=== PATIENT | female | born 1970 | race Caucasian/White ===

== ENCOUNTER 2023-01-15 19:24 | Inpatient (IN) | payer MEDICARE, MEDICAID ==
[2023-01-15] VITALS (8 sets, daily range): BP systolic 91–146; BP diastolic 50–98; PULSE 119–140; RESP 16–32; TEMP 95.5–97.5; O2SAT 94–98
[~2023-01-15] VITALS: Ht 162.6 cm; Wt 70.0 kg
[2023-01-15] MEDS ORDERED: NALOXONE HCL 1MG/ML 2ML SYRINGE ONE (19:27)
[2023-01-15] MEDS ORDERED: ROCURONIUM 10MG/ML 10ML VIAL IV ONE ×2 (19:39→20:45)
[2023-01-15] MEDS ORDERED: ETOMIDATE (2MG/ML) 20ML VIAL IV ONE ×2 (19:39→20:45)
[2023-01-15] MEDS ORDERED: PROPOFOL 100 ML IV ONE (19:39)
[2023-01-15] MEDS ORDERED: NALOXONE HCL 1MG/ML 2ML SYRINGE IV ONE ×2 (19:45)
[2023-01-15] MEDS ORDERED: MIDAZOLAM DRIP 50 mg/50mL 50 ML IV ONE (20:03)
[2023-01-15 20:05] LABS: Basophils # (auto) 0 10 ^3/uL (0-0.2); Basophils % (auto) 0.1 % (0.0-2.0); Eosinophils # (auto) 0 10 ^3/uL (0-0.8); Eosinophils % (auto) 0.1 % (0.0-7.0); Hematocrit 25.4 % (36.0-46.0); Hemoglobin 7.6 g/dL (12.2-16.2); Lymphocytes # (auto) 1.6 10 ^3/uL (0.4-5.4); Lymphocytes % (auto) 6.1 % (10.0-50.0); Mean Corpuscular Hemoglobin 28.8 pg (28.0-32.0); Mean Corpuscular Volume 96.1 fL (80.0-100.0); Monocytes # (auto) 1.6 10 ^3/uL (0-1.3); Neutrophils # (auto) 23.1 10 ^3/uL (1.6-8.6); Neutrophils % (auto) 87.7 % (37.0-80.0); Nucleated Red Blood Cells % 0.2 %; Red Blood Cells 2.64 10^6/uL (4.0-5.20); Red Cell Distribution Width 15.1 % (11.8-14.3); White Blood Cell 26.3 10^3/uL (4.4-10.8)
[2023-01-15] MEDS ORDERED: NOREPINEPHRINE 8 MG/250ML KIT 250 ML IV ONE (20:10)
[2023-01-15 20:27] LABS: INR 1.28 (0.9-1.15); Partial Thromboplastin Time 20.5 SEC (24.5-34.5); Prothrombin Time 13.2 sec (9.3-11.8)
[2023-01-15] MEDS: MIDAZOLAM DRIP 50 mg/50mL 50 ML IV SCH (20:30)
[2023-01-15] MEDS: NOREPINEPHRINE 8 MG/250ML KIT 250 ML IV SCH (20:30)
[2023-01-15 20:37] LABS: Acetaminophen < 2.0 UG/ML (10.0-20.0); Alanine Aminotransferase 72 U/L (7-40); Albumin 3.5 g/dL (3.2-4.8); Alkaline Phosphatase 116 U/L (46-116); Anion Gap 25 (5-15); Aspartate Aminotransferase 99 U/L (13-40); BUN/Creatinine Ratio 41.5 (10.0-20.0); Bilirubin, Total 0.3 mg/dL (0.2-1.0); Blood Urea Nitrogen 56 mg/dL (9-23); Carbon Dioxide 14 mmol/L (20-30); Chloride 101 mmol/L (98-107); Glucose 171 mg/dL (74-106); Potassium 3.7 mmol/L (3.5-5.1); Sodium 140 mmol/L (136-145); Total Protein 5.6 g/dL (5.7-8.2)
[2023-01-15] MEDS ORDERED: OCTREOTIDE ACETATE 100 MCG/ML VL ONE (20:45)
[2023-01-15] MEDS: OCTREOTIDE ACETATE 500 MCG in SODIUM CHL 0.9% 99 ML IV SCH (20:45)
[2023-01-15] MEDS ORDERED: OCTREOTIDE ACETATE 500 MCG/ML VL ONE (20:45)
[2023-01-15] MEDS ORDERED: OCTREOTIDE ACETATE 100 MCG in SODIUM CHL 0.9% 50 ML IV ONE (20:45)
[2023-01-15] MEDS ORDERED: PANTOPRAZOLE 40 MG/10 ML VIAL INJ IV ONE (20:45)
[2023-01-15 20:54] LABS: Amphetamine Screen, Urine Neg (NEGATIVE); Barbiturate Scree,Urine Neg (NEGATIVE); Benzodiazephine Screen, Urine Pos (NEGATIVE); Cannabinoid Screen, Urine Pos (NEGATIVE); Cocaine Screen, Urine Neg (NEGATIVE); Opiate Scree,Urine Pos (NEGATIVE); Phencyclidine Screen, Urine Neg (NEGATIVE)
[2023-01-15 20:55] LABS: Salicylate < 3.0 mg/dL (2.8-20.0)
[2023-01-15 21:01] LABS: Urine Bacteria NONE SEEN /hpf (None Seen); Urine Blood Negative /uL (Negative); Urine Clarity Clear (Clear); Urine Color Yellow (Yellow); Urine Protein, UAD Negative (Negative); Urine Specific Gravity 1.026 (1.001-1.035); Urine Urobilinogen Normal (Negative); Urine WBC 1 /hpf (0 - 5); Urine pH 5.5 (5.0-8.0)
[2023-01-15] MEDS ORDERED: PIPERACILLIN-TAZO 4.5GM 100 ML IV ONE (21:15)
[2023-01-15] MEDS ORDERED: VANCOMYCIN 1GM/250ML 250 ML IV ONE (21:15)
[2023-01-15 21:45] LABS: Base Excess -11.6 mmol/L (-2.0-2.0)
[2023-01-15] MEDS ORDERED: VANCOMYCIN PER PHARMACY 0 MG IV SCH (21:45)
[2023-01-15] MEDS ORDERED: MORPHINE SULFATE INJ 2 MG/ml SYRG IV PRN (21:45)
[2023-01-15] MEDS ORDERED: IBUPROFEN 100MG/5ML ORAL SUSP 100 MG/5 ML UD GT PRN (21:45)
[2023-01-15] MEDS ORDERED: NITROGLYCERIN 0.4 MG SL TAB SL PRN (21:45)
[2023-01-15] MEDS ORDERED: ONDANSETRON HCL 4 MG/2 ML VIAL IV PRN (21:45)
[2023-01-15] MEDS ORDERED: DEXTROSE (50%) 50ML SYRG IV PRN (21:45)
[2023-01-15] MEDS ORDERED: SODIUM BICARBONATE 8.4% INJ 50ML SYRINGE ONE (21:57)
[2023-01-15] MEDS ORDERED: HEPARIN SODIUM (PORCINE) 5000 UNITS/ML 1ML VIAL SC SCH (22:00)
[2023-01-15] MEDS: SODIUM CHLOR 0.9% PF (SALINE LOCK) 10ML VIAL/SYR IV SCH (22:00)
[2023-01-15] MEDS ORDERED: SODIUM BICARBONATE 8.4 % INJ 50ML VIAL IV ONE (22:00)
[2023-01-15 22:01] LABS: Blood Alcohol < 3.0 mg/dL (<10)
[2023-01-15 22:02] LABS: Magnesium 2.1 mg/dL (1.6-2.6)
[2023-01-15 22:03] LABS: Lactic Acid w/Reflex 12.7 mmol/L (0.4-2.0)
[2023-01-15] MEDS ORDERED: cefTRIAXone 1GM/50ML D5W 50 ML IV SCH (23:00)
[2023-01-15] MEDS ORDERED: fentaNYL Drip 2500mCg/250mlNS 250 ML IV ONE (23:43)
[2023-01-15] MEDS: fentaNYL Drip 2500mCg/250mlNS 250 ML IV SCH (23:45)
[2023-01-16] VITALS (106 sets, daily range): BP systolic 77–140; BP diastolic 26–75; PULSE 109–142; RESP 15–24; TEMP 98.4–101.7; O2SAT 93–100
[2023-01-16] MEDS ORDERED: AZITHROMYCIN 500MG/ 250ML 250 ML IV ONE
[2023-01-16] MEDS ORDERED: PROPOFOL 100 ML IV ONE (00:01)
[2023-01-16] MEDS: FAMOTIDINE (10MG/ML) 2ML VL IV SCH ×3 (01:37→21:48)
[2023-01-16] MEDS: ACCU-CHEK COMFORT CURVE STRIP VI SCH ×2 (01:38→05:56)
[2023-01-16] MEDS: MIDAZOLAM DRIP 50 mg/50mL 50 ML IV SCH ×2 (03:18→08:03)
[2023-01-16 04:12] LABS: Basophils # (auto) 0 10 ^3/uL (0-0.2); Basophils % (auto) 0.1 % (0.0-2.0); Eosinophils # (auto) 0 10 ^3/uL (0-0.8); Hematocrit 28.5 % (36.0-46.0); Hemoglobin 9.2 g/dL (12.2-16.2); Lymphocytes % (auto) 7.6 % (10.0-50.0); Mean Corpuscular Hemoglobin 28.9 pg (28.0-32.0); Mean Corpuscular Hgb Conc. 32.5 g/dL (32.0-36.0); Mean Corpuscular Volume 89.1 fL (80.0-100.0); Neutrophils # (auto) 22.8 10 ^3/uL (1.6-8.6); Neutrophils % (auto) 88.3 % (37.0-80.0); Nucleated Red Blood Cells % 0.2 %; Red Blood Cells 3.19 10^6/uL (4.0-5.20); Red Cell Distribution Width 13.8 % (11.8-14.3); White Blood Cell 25.9 10^3/uL (4.4-10.8)
[2023-01-16 04:31] LABS: Alanine Aminotransferase 698 U/L (7-40); Albumin 3.2 g/dL (3.2-4.8); Alkaline Phosphatase 120 U/L (46-116); Anion Gap 8 (5-15); Aspartate Aminotransferase 972 U/L (13-40); Blood Urea Nitrogen 51 mg/dL (9-23); Calcium 7.7 mg/dL (8.7-10.4); Carbon Dioxide 31 mmol/L (20-30); Chloride 102 mmol/L (98-107); Glucose 149 mg/dL (74-106); Potassium 3.4 mmol/L (3.5-5.1); Sodium 141 mmol/L (136-145)
[2023-01-16 04:32] LABS: Bilirubin, Total 0.3 mg/dL (0.2-1.0); Total Protein 5.1 g/dL (5.7-8.2)
[2023-01-16 04:58] LABS: BUN/Creatinine Ratio 47.2 (10.0-20.0)
[2023-01-16] MEDS: SODIUM CHLOR 0.9% PF (SALINE LOCK) 10ML VIAL/SYR IV SCH ×3 (05:56→21:48)
[2023-01-16] MEDS: InsuLIN REG 1unit/0.01ml Soln (100units/ml) SC SCH ×2 (05:57)
[2023-01-16] MEDS: OCTREOTIDE ACETATE 500 MCG in SODIUM CHL 0.9% 99 ML IV SCH ×2 (06:57→16:33)
[2023-01-16 08:44] LABS: Base Excess 1.1 mmol/L (-2.0-2.0)
[2023-01-16] MEDS: fentaNYL Drip 2500mCg/250mlNS 250 ML IV SCH (09:26)
[2023-01-16] MEDS ORDERED: SODIUM CHLORIDE 0.9% 500 ML IV ONE (10:15)
[2023-01-16] MEDS: PROPOFOL 100 ML IV SCH ×2 (10:24→19:47)
[2023-01-16] MEDS: AZITHROMYCIN 500MG/ 250ML 250 ML IV SCH (10:24)
[2023-01-16] MEDS: SODIUM CHLORIDE 0.9% 1,000 ML IV SCH ×2 (10:36→19:48)
[2023-01-16] MEDS: VANCOMYCIN 1GM/250ML 250 ML IV SCH (12:44)
[2023-01-16] MEDS ORDERED: cefTRIAXone 1GM/50ML D5W 50 ML IV SCH (20:00)
[2023-01-16] MEDS: NOREPINEPHRINE 8 MG/250ML KIT 250 ML IV SCH (20:30)
[2023-01-16] MEDS: PANTOPRAZOLE 40 MG/10 ML VIAL INJ IV SCH (21:48)
[2023-01-17] VITALS (99 sets, daily range): BP systolic 97–189; BP diastolic 46–88; PULSE 102–125; RESP 14–98; TEMP 98.4–99.5; O2SAT 90–100
[2023-01-17] MEDS ORDERED: AZITHROMYCIN 500MG/ 250ML 250 ML IV SCH
[2023-01-17] MEDS: fentaNYL Drip 2500mCg/250mlNS 250 ML IV SCH ×2 (01:36→17:48)
[2023-01-17] MEDS: SODIUM CHLORIDE 0.9% 1,000 ML IV SCH ×3 (02:08→23:35)
[2023-01-17] MEDS: OCTREOTIDE ACETATE 500 MCG in SODIUM CHL 0.9% 99 ML IV SCH ×3 (02:58→23:36)
[2023-01-17 03:59] LABS: Basophils # (auto) 0 10 ^3/uL (0-0.2); Eosinophils # (auto) 0.2 10 ^3/uL (0-0.8); Lymphocytes # (auto) 1.1 10 ^3/uL (0.4-5.4)
[2023-01-17 04:01] LABS: Eosinophils % (auto) 0.8 % (0.0-7.0); Hematocrit 21.4 % (36.0-46.0); Lymphocytes % (auto) 5.3 % (10.0-50.0); Mean Corpuscular Hemoglobin 29.2 pg (28.0-32.0); Mean Corpuscular Hgb Conc. 32.2 g/dL (32.0-36.0); Mean Corpuscular Volume 90.7 fL (80.0-100.0); Monocytes # (auto) 1.2 10 ^3/uL (0-1.3); Monocytes % (auto) 5.7 % (0.0-12.0); Neutrophils # (auto) 18.4 10 ^3/uL (1.6-8.6); Neutrophils % (auto) 88.2 % (37.0-80.0); Nucleated Red Blood Cells % 0.1 %; Red Blood Cells 2.36 10^6/uL (4.0-5.20); Red Cell Distribution Width 14.5 % (11.8-14.3); White Blood Cell 20.9 10^3/uL (4.4-10.8)
[2023-01-17 04:09] LABS: Alanine Aminotransferase 745 U/L (7-40); Albumin 2.7 g/dL (3.2-4.8); Alkaline Phosphatase 109 U/L (46-116); Anion Gap 3 (5-15); Aspartate Aminotransferase 737 U/L (13-40); BUN/Creatinine Ratio 39.7 (10.0-20.0); Blood Urea Nitrogen 23 mg/dL (9-23); Calcium 7.1 mg/dL (8.7-10.4); Carbon Dioxide 30 mmol/L (20-30); Chloride 108 mmol/L (98-107); Glucose 124 mg/dL (74-106); Magnesium 1.7 mg/dL (1.6-2.6); Potassium 3.6 mmol/L (3.5-5.1); Sodium 141 mmol/L (136-145)
[2023-01-17 04:10] LABS: Bilirubin, Total 0.2 mg/dL (0.2-1.0); Total Protein 4.6 g/dL (5.7-8.2)
[2023-01-17 04:31] LABS: Hemoglobin 6.9 g/dL (12.2-16.2)
[2023-01-17] MEDS: SODIUM CHLOR 0.9% PF (SALINE LOCK) 10ML VIAL/SYR IV SCH ×3 (05:59→22:11)
[2023-01-17] MEDS: VANCOMYCIN 1GM/250ML 250 ML IV SCH ×2 (05:59→23:58)
[2023-01-17 07:11] LABS: Basophils % (auto) 0.2 % (0.0-2.0); Lymphocytes # (auto) 1.1 10 ^3/uL (0.4-5.4); Neutrophils # (auto) 19.4 10 ^3/uL (1.6-8.6); Red Cell Distribution Width 14.1 % (11.8-14.3)
[2023-01-17 07:14] LABS: Basophils # (auto) 0 10 ^3/uL (0-0.2); Eosinophils # (auto) 0.2 10 ^3/uL (0-0.8); Eosinophils % (auto) 0.9 % (0.0-7.0); Hematocrit 21.8 % (36.0-46.0); Lymphocytes % (auto) 5.1 % (10.0-50.0); Mean Corpuscular Hemoglobin 29.2 pg (28.0-32.0); Mean Corpuscular Volume 91.4 fL (80.0-100.0); Monocytes # (auto) 1.3 10 ^3/uL (0-1.3); Neutrophils % (auto) 87.8 % (37.0-80.0); Nucleated Red Blood Cells % 0.6 %; Red Blood Cells 2.39 10^6/uL (4.0-5.20)
[2023-01-17] MEDS: PROPOFOL 100 ML IV SCH ×2 (08:58→17:48)
[2023-01-17] MEDS ORDERED: cefTRIAXone 1GM/50ML D5W 50 ML IV SCH (09:00)
[2023-01-17 09:54] LABS: Base Excess 2.5 mmol/L (-2.0-2.0)
[2023-01-17] MEDS: FAMOTIDINE (10MG/ML) 2ML VL IV SCH (10:03)
[2023-01-17] MEDS: PANTOPRAZOLE 40 MG/10 ML VIAL INJ IV SCH ×2 (10:03→22:11)
[2023-01-17] MEDS: AZITHROMYCIN 500MG/ 250ML 250 ML IV SCH (10:03)
[2023-01-17] MEDS: CEFEPIME 1GM/ 50ML 50 ML IV SCH ×2 (12:13→19:37)
[2023-01-17 13:33] LABS: Hematocrit 26.1 % (36.0-46.0); Hemoglobin 8.5 g/dL (12.2-16.2)
[2023-01-17] MEDS ORDERED: ZOLP10TA6 PO (17:05)
[2023-01-17] MEDS ORDERED: HYDR-4072 PO (17:05)
[2023-01-17] MEDS ORDERED: ERGO2000 PO (17:05)
[2023-01-17] MEDS ORDERED: [UNRECOGNIZED DRUG - CODE] PO (17:05)
[2023-01-17] MEDS ORDERED: DULO20CA PO (17:05)
[2023-01-17] MEDS ORDERED: ALPR0.5T PO (17:05)
[2023-01-17] MEDS ORDERED: IBUP-1456 PO (17:05)
[2023-01-17] MEDS ORDERED: OMEP20TA PO (17:05)
[2023-01-17] MEDS ORDERED: OXYC325T14 PO (17:05)
[2023-01-17] MEDS ORDERED: TOFA5TAB PO (17:05)
[2023-01-17] MEDS ORDERED: CYCL-839 PO (17:05)
[2023-01-17] MEDS ORDERED: LORA-1121 PO (17:05)
[2023-01-17] MEDS ORDERED: OYST500T28 PO (17:05)
[2023-01-17] MEDS ORDERED: ZOFR4T PO (17:05)
[2023-01-17] MEDS: NOREPINEPHRINE 8 MG/250ML KIT 250 ML IV SCH (20:30)
[2023-01-17] MEDS: MIDAZOLAM DRIP 50 mg/50mL 50 ML IV SCH (20:30)
[2023-01-18] VITALS (108 sets, daily range): BP systolic 107–183; BP diastolic 40–95; PULSE 88–131; RESP 14–24; TEMP 99–100; O2SAT 90–100
[2023-01-18] MEDS: PROPOFOL 100 ML IV SCH ×3 (02:27→18:33)
[2023-01-18] MEDS: CEFEPIME 1GM/ 50ML 50 ML IV SCH ×3 (04:00→20:30)
[2023-01-18 04:28] LABS: Hemoglobin 8.1 g/dL (12.2-16.2); Monocytes # (auto) 1.2 10 ^3/uL (0-1.3); Monocytes % (auto) 5.8 % (0.0-12.0); Nucleated Red Blood Cells % 0.1 %
[2023-01-18 04:29] LABS: Basophils # (auto) 0.1 10 ^3/uL (0-0.2); Basophils % (auto) 0.3 % (0.0-2.0); Eosinophils # (auto) 0.3 10 ^3/uL (0-0.8); Eosinophils % (auto) 1.6 % (0.0-7.0); Hematocrit 24.9 % (36.0-46.0); Lymphocytes % (auto) 4.8 % (10.0-50.0); Mean Corpuscular Hemoglobin 30.1 pg (28.0-32.0); Mean Corpuscular Hgb Conc. 32.7 g/dL (32.0-36.0); Neutrophils # (auto) 18.7 10 ^3/uL (1.6-8.6); Neutrophils % (auto) 87.5 % (37.0-80.0); Red Blood Cells 2.71 10^6/uL (4.0-5.20); Red Cell Distribution Width 14.2 % (11.8-14.3); White Blood Cell 21.4 10^3/uL (4.4-10.8)
[2023-01-18 04:44] LABS: Alanine Aminotransferase 529 U/L (7-40); Alkaline Phosphatase 115 U/L (46-116); Anion Gap 4 (5-15); Aspartate Aminotransferase 317 U/L (13-40); BUN/Creatinine Ratio 16.7 (10.0-20.0); Calcium 7.6 mg/dL (8.7-10.4); Carbon Dioxide 28 mmol/L (20-30); Chloride 107 mmol/L (98-107); Glucose 105 mg/dL (74-106); Magnesium 1.8 mg/dL (1.6-2.6); Potassium 3.6 mmol/L (3.5-5.1); Sodium 139 mmol/L (136-145)
[2023-01-18 04:45] LABS: Bilirubin, Total 0.2 mg/dL (0.2-1.0); Total Protein 5.1 g/dL (5.7-8.2)
[2023-01-18 04:54] LABS: Blood Urea Nitrogen 8 mg/dL (9-23)
[2023-01-18] MEDS: SODIUM CHLOR 0.9% PF (SALINE LOCK) 10ML VIAL/SYR IV SCH ×3 (06:15→21:58)
[2023-01-18] MEDS: fentaNYL Drip 2500mCg/250mlNS 250 ML IV SCH ×2 (08:09→22:07)
[2023-01-18] MEDS ORDERED: LIDOCAINE 2%HCL (LOCAL ANESTH.) INJ 20ML MDV ONE (08:24)
[2023-01-18] MEDS ORDERED: LIDOCAINE 2% JELLY 11ml (GLYDO) ONE (08:25)
[2023-01-18] MEDS ORDERED: EPINEPHrine HCL 1 MG/1 ML AMP ONE (08:26)
[2023-01-18] MEDS ORDERED: GLYCOPYRROLATE 0.2 MG/ML 1ML VIAL ONE (08:27)
[2023-01-18] MEDS: PANTOPRAZOLE 40 MG/10 ML VIAL INJ IV SCH ×2 (10:23→21:58)
[2023-01-18] MEDS: OCTREOTIDE ACETATE 500 MCG in SODIUM CHL 0.9% 99 ML IV SCH ×2 (10:23→21:57)
[2023-01-18] MEDS: SODIUM CHLORIDE 0.9% 1,000 ML IV SCH ×3 (10:42→23:25)
[2023-01-18] MEDS: VANCOMYCIN 1GM/250ML 250 ML IV SCH (18:00)
[2023-01-18] MEDS: LABETALOL HCL 5 MG/ML 4ML SYRINGE IV PRN (20:18)
[2023-01-18] MEDS: NOREPINEPHRINE 8 MG/250ML KIT 250 ML IV SCH (20:30)
[2023-01-18] MEDS: MIDAZOLAM DRIP 50 mg/50mL 50 ML IV SCH (20:30)
[2023-01-19] VITALS (109 sets, daily range): BP systolic 83–185; BP diastolic 36–85; PULSE 76–122; RESP 10–34; TEMP 97–99.9; O2SAT 86–100
[2023-01-19] MEDS: CEFEPIME 1GM/ 50ML 50 ML IV SCH ×3 (02:58→20:58)
[2023-01-19] MEDS: PROPOFOL 100 ML IV SCH ×5 (03:04→19:57)
[2023-01-19 04:25] LABS: Basophils # (auto) 0 10 ^3/uL (0-0.2); Eosinophils # (auto) 0.4 10 ^3/uL (0-0.8); Mean Corpuscular Hemoglobin 29.9 pg (28.0-32.0)
[2023-01-19 04:27] LABS: Basophils % (auto) 0.2 % (0.0-2.0); Eosinophils % (auto) 2.3 % (0.0-7.0); Hematocrit 24.1 % (36.0-46.0); Hemoglobin 7.9 g/dL (12.2-16.2); Lymphocytes # (auto) 0.7 10 ^3/uL (0.4-5.4); Lymphocytes % (auto) 4.1 % (10.0-50.0); Mean Corpuscular Hgb Conc. 32.7 g/dL (32.0-36.0); Mean Corpuscular Volume 91.2 fL (80.0-100.0); Monocytes # (auto) 1.5 10 ^3/uL (0-1.3); Monocytes % (auto) 8.6 % (0.0-12.0); Neutrophils # (auto) 14.6 10 ^3/uL (1.6-8.6); Neutrophils % (auto) 84.8 % (37.0-80.0); Nucleated Red Blood Cells % 0.2 %; Red Blood Cells 2.64 10^6/uL (4.0-5.20); Red Cell Distribution Width 14.5 % (11.8-14.3); White Blood Cell 17.2 10^3/uL (4.4-10.8)
[2023-01-19 04:37] LABS: Alanine Aminotransferase 353 U/L (7-40); Albumin 3.1 g/dL (3.2-4.8); Alkaline Phosphatase 121 U/L (46-116); Anion Gap 6 (5-15); Aspartate Aminotransferase 129 U/L (13-40); BUN/Creatinine Ratio 13.6 (10.0-20.0); Blood Urea Nitrogen 6 mg/dL (9-23); Calcium 7.9 mg/dL (8.7-10.4); Carbon Dioxide 26 mmol/L (20-30); Chloride 107 mmol/L (98-107); Glucose 95 mg/dL (74-106); Potassium 3.5 mmol/L (3.5-5.1); Sodium 139 mmol/L (136-145)
[2023-01-19 04:38] LABS: Bilirubin, Total 0.2 mg/dL (0.2-1.0); Total Protein 5.3 g/dL (5.7-8.2)
[2023-01-19] MEDS: OCTREOTIDE ACETATE 500 MCG in SODIUM CHL 0.9% 99 ML IV SCH ×2 (04:45→07:58)
[2023-01-19] MEDS: SODIUM CHLOR 0.9% PF (SALINE LOCK) 10ML VIAL/SYR IV SCH ×3 (06:38→20:59)
[2023-01-19 08:14] LABS: Base Excess -1.4 mmol/L (-2.0-2.0)
[2023-01-19] MEDS: PANTOPRAZOLE 40 MG/10 ML VIAL INJ IV SCH ×2 (09:35→20:58)
[2023-01-19] MEDS: LABETALOL HCL 5 MG/ML 4ML SYRINGE IV PRN (10:18)
[2023-01-19] MEDS: fentaNYL Drip 2500mCg/250mlNS 250 ML IV SCH ×2 (11:17→19:50)
[2023-01-19] MEDS: VANCOMYCIN 1GM/250ML 250 ML IV SCH (12:15)
[2023-01-19] MEDS: SODIUM CHLORIDE 0.9% 1,000 ML IV SCH (12:48)
[2023-01-19] MEDS ORDERED: ALBUTEROL SULF 2.5 MG/0.5ML(0.5%) NEB SOLN NEB ONE (13:15)
[2023-01-19] MEDS ORDERED: IPRATROPIUM BROM 0.5 MG/2.5ML INH SOL NEB ONE (13:15)
[2023-01-19] MEDS ORDERED: FLUCONAZOLE 200MG/100ML 100 ML IV ONE (13:45)
[2023-01-19] MEDS ORDERED: FUROSEMIDE 40 MG/4 ML VIAL IV ONE (13:45)
[2023-01-19] MEDS ORDERED: POTASSIUM EFFERVESENT TAB 25 MEQ PO ONE (13:45)
[2023-01-19] MEDS ORDERED: ALBUTEROL MEDNEB 2.5 mg/3ml NEB ONE (13:49)
[2023-01-19] MEDS: MIDAZOLAM DRIP 50 mg/50mL 50 ML IV SCH ×2 (14:32→20:59)
[2023-01-19] MEDS: NOREPINEPHRINE 8 MG/250ML KIT 250 ML IV SCH (20:30)
[2023-01-20] VITALS (109 sets, daily range): BP systolic 100–190; BP diastolic 33–95; PULSE 96–139; RESP 14–26; TEMP 98.6–100.6; O2SAT 89–100
[2023-01-20] MEDS: PROPOFOL 100 ML IV SCH ×4 (01:06→18:54)
[2023-01-20] MEDS: CEFEPIME 1GM/ 50ML 50 ML IV SCH (02:41)
[2023-01-20 04:33] LABS: Eosinophils # (auto) 0.9 10 ^3/uL (0-0.8); Lymphocytes # (auto) 1.2 10 ^3/uL (0.4-5.4)
[2023-01-20 04:34] LABS: Basophils # (auto) 0.2 10 ^3/uL (0-0.2); Basophils % (auto) 0.8 % (0.0-2.0); Eosinophils % (auto) 4.8 % (0.0-7.0); Hematocrit 26.9 % (36.0-46.0); Hemoglobin 8.6 g/dL (12.2-16.2); Lymphocytes % (auto) 6.5 % (10.0-50.0); Mean Corpuscular Hemoglobin 30.2 pg (28.0-32.0); Mean Corpuscular Hgb Conc. 32.2 g/dL (32.0-36.0); Monocytes # (auto) 1.7 10 ^3/uL (0-1.3); Monocytes % (auto) 9.2 % (0.0-12.0); Neutrophils # (auto) 14.7 10 ^3/uL (1.6-8.6); Neutrophils % (auto) 78.7 % (37.0-80.0); Nucleated Red Blood Cells % 0.7 %; Red Blood Cells 2.86 10^6/uL (4.0-5.20); Red Cell Distribution Width 15.3 % (11.8-14.3); White Blood Cell 18.6 10^3/uL (4.4-10.8)
[2023-01-20] MEDS: fentaNYL Drip 2500mCg/250mlNS 250 ML IV SCH ×2 (04:57→17:22)
[2023-01-20] MEDS: SODIUM CHLOR 0.9% PF (SALINE LOCK) 10ML VIAL/SYR IV SCH ×3 (04:58→21:13)
[2023-01-20] MEDS: VANCOMYCIN 1GM/250ML 250 ML IV SCH ×2 (05:31→23:44)
[2023-01-20 06:38] LABS: Alanine Aminotransferase 215 U/L (7-40); Albumin 3.2 g/dL (3.2-4.8); Alkaline Phosphatase 115 U/L (46-116); Anion Gap 6 (5-15); Aspartate Aminotransferase 73 U/L (13-40); BUN/Creatinine Ratio 11.5 (10.0-20.0); Bilirubin, Total 0.2 mg/dL (0.2-1.0); Blood Urea Nitrogen 6 mg/dL (9-23); Calcium 8.1 mg/dL (8.7-10.4); Carbon Dioxide 29 mmol/L (20-30); Chloride 103 mmol/L (98-107); Glucose 93 mg/dL (74-106); Potassium 3.8 mmol/L (3.5-5.1); Sodium 138 mmol/L (136-145); Total Protein 5.3 g/dL (5.7-8.2)
[2023-01-20 08:37] LABS: Base Excess -0.7 mmol/L (-2.0-2.0)
[2023-01-20] MEDS ORDERED: FUROSEMIDE 40 MG/4 ML VIAL IV SCH (10:00)
[2023-01-20] MEDS: FLUCONAZOLE 200MG/100ML 100 ML IV SCH (10:24)
[2023-01-20] MEDS: PANTOPRAZOLE 40 MG/10 ML VIAL INJ IV SCH ×2 (10:24→21:13)
[2023-01-20] MEDS: POTASSIUM EFFERVESENT TAB 25 MEQ PO SCH (10:25)
[2023-01-20] MEDS: Jevity 1.2 Cal/Fiber 1 Liter GT SCH (12:36)
[2023-01-20] MEDS: CEFEPIME 2GM/50ML NS 50 ML IV SCH ×2 (14:03→21:13)
[2023-01-20] MEDS: ACETAMINOPHEN 325 MG TAB PO PRN (19:04)
[2023-01-20] MEDS: LABETALOL HCL 5 MG/ML 4ML SYRINGE IV PRN (19:54)
[2023-01-20] MEDS: NOREPINEPHRINE 8 MG/250ML KIT 250 ML IV SCH (20:30)
[2023-01-21] VITALS (111 sets, daily range): BP systolic 99–183; BP diastolic 33–95; PULSE 91–131; RESP 12–24; TEMP 98.1–99.9; O2SAT 90–100
[2023-01-21] MEDS: PROPOFOL 100 ML IV SCH ×5 (00:01→22:55)
[2023-01-21] MEDS: MIDAZOLAM DRIP 50 mg/50mL 50 ML IV SCH ×2 (01:21→19:45)
[2023-01-21] MEDS: fentaNYL Drip 2500mCg/250mlNS 250 ML IV SCH ×2 (04:44→17:53)
[2023-01-21] MEDS: CEFEPIME 2GM/50ML NS 50 ML IV SCH ×3 (05:29→21:13)
[2023-01-21] MEDS: SODIUM CHLOR 0.9% PF (SALINE LOCK) 10ML VIAL/SYR IV SCH ×3 (05:30→21:14)
[2023-01-21 08:07] LABS: Base Excess 4.4 mmol/L (-2.0-2.0)
[2023-01-21 09:01] LABS: Hemoglobin 8.2 g/dL (12.2-16.2); Red Cell Distribution Width 14.1 % (11.8-14.3)
[2023-01-21 09:02] LABS: Hematocrit 25.2 % (36.0-46.0); Mean Corpuscular Hemoglobin 29.4 pg (28.0-32.0); Mean Corpuscular Hgb Conc. 32.6 g/dL (32.0-36.0); Mean Corpuscular Volume 90.3 fL (80.0-100.0); White Blood Cell 15.5 10^3/uL (4.4-10.8)
[2023-01-21 09:06] LABS: Alanine Aminotransferase 100 U/L (7-40); Albumin 2.4 g/dL (3.2-4.8); Alkaline Phosphatase 88 U/L (46-116); Anion Gap 8 (5-15); Aspartate Aminotransferase 27 U/L (13-40); Carbon Dioxide 25 mmol/L (20-30); Glucose 80 mg/dL (74-106)
[2023-01-21 09:07] LABS: Bilirubin, Total 0.2 mg/dL (0.2-1.0); Blood Urea Nitrogen < 5 mg/dL (9-23); Chloride 113 mmol/L (98-107); Sodium 146 mmol/L (136-145)
[2023-01-21 09:09] LABS: Potassium 2.4 mmol/L (3.5-5.1)
[2023-01-21] MEDS ORDERED: POTASSIUM EFFERVESENT TAB 25 MEQ PO ONE ×2 (09:15)
[2023-01-21 09:27] LABS: Band Neutrophils % (manual) 0; Basophils % (manual) 0 (0.0-2.0); Blast Cells 0; Metamyelocytes % 0; Myelocytes % 0; Promyelocytes % 0; Reactive Lymphocytes 0
[2023-01-21 09:28] LABS: Eosinophils % (manual) 3 (0-7); Lymphocytes % (manual) 9 (10.0-50.0); Monocytes % (manual) 6 (0-12); Platelet Estimate Increased
[2023-01-21 09:30] LABS: Hypochromia Slight
[2023-01-21] MEDS: PANTOPRAZOLE 40 MG/10 ML VIAL INJ IV SCH ×2 (09:59→21:13)
[2023-01-21] MEDS: FLUCONAZOLE 200MG/100ML 100 ML IV SCH (10:00)
[2023-01-21] MEDS: POTASSIUM EFFERVESENT TAB 25 MEQ PO SCH (10:41)
[2023-01-21] MEDS: LABETALOL HCL 5 MG/ML 4ML SYRINGE IV PRN (10:50)
[2023-01-21 13:35] LABS: Alanine Aminotransferase 124 U/L (7-40); Albumin 3.2 g/dL (3.2-4.8); Alkaline Phosphatase 129 U/L (46-116); Anion Gap 4 (5-15); Aspartate Aminotransferase 33 U/L (13-40); BUN/Creatinine Ratio 13.6 (10.0-20.0); Blood Urea Nitrogen 6 mg/dL (9-23); Carbon Dioxide 33 mmol/L (20-30); Chloride 100 mmol/L (98-107); Glucose 114 mg/dL (74-106); Magnesium 1.7 mg/dL (1.6-2.6); Potassium 4.4 mmol/L (3.5-5.1); Sodium 137 mmol/L (136-145)
[2023-01-21 13:36] LABS: Bilirubin, Total 0.3 mg/dL (0.2-1.0); Total Protein 5.3 g/dL (5.7-8.2)
[2023-01-21] MEDS: VANCOMYCIN 1GM/250ML 250 ML IV SCH (17:48)
[2023-01-21] MEDS: FUROSEMIDE 40 MG/4 ML VIAL IV SCH (18:01)
[2023-01-21] MEDS: NOREPINEPHRINE 8 MG/250ML KIT 250 ML IV SCH (19:46)
[2023-01-22] VITALS (105 sets, daily range): BP systolic 89–179; BP diastolic 48–97; PULSE 86–127; RESP 14–25; TEMP 97–99.6; O2SAT 91–100
[2023-01-22 04:02] LABS: Hemoglobin 8.4 g/dL (12.2-16.2)
[2023-01-22 04:03] LABS: Hematocrit 26.1 % (36.0-46.0); Mean Corpuscular Hemoglobin 28.8 pg (28.0-32.0); Mean Corpuscular Hgb Conc. 32.1 g/dL (32.0-36.0); Mean Corpuscular Volume 89.6 fL (80.0-100.0); Red Blood Cells 2.91 10^6/uL (4.0-5.20); Red Cell Distribution Width 14.3 % (11.8-14.3); White Blood Cell 14.8 10^3/uL (4.4-10.8)
[2023-01-22 04:05] LABS: Alanine Aminotransferase 105 U/L (7-40); Albumin 3.4 g/dL (3.2-4.8); Alkaline Phosphatase 126 U/L (46-116); Anion Gap 4 (5-15); Aspartate Aminotransferase 36 U/L (13-40); Bilirubin, Total 0.3 mg/dL (0.2-1.0); Blood Urea Nitrogen 6 mg/dL (9-23); Calcium 8.4 mg/dL (8.5-10.1); Carbon Dioxide 37 mmol/L (20-30); Chloride 97 mmol/L (98-107); Glucose 103 mg/dL (74-106); Potassium 3.6 mmol/L (3.5-5.1); Sodium 138 mmol/L (136-145); Total Protein 5.7 g/dL (5.7-8.2)
[2023-01-22 04:34] LABS: Basophils % (manual) 0 (0.0-2.0); Blast Cells 0; Metamyelocytes % 0; Myelocytes % 0; Promyelocytes % 0; Reactive Lymphocytes 0
[2023-01-22] MEDS: PROPOFOL 100 ML IV SCH ×4 (04:35→19:41)
[2023-01-22] MEDS: fentaNYL Drip 2500mCg/250mlNS 250 ML IV SCH ×2 (04:36→17:55)
[2023-01-22] MEDS: SODIUM CHLOR 0.9% PF (SALINE LOCK) 10ML VIAL/SYR IV SCH ×3 (05:36→21:38)
[2023-01-22] MEDS: CEFEPIME 2GM/50ML NS 50 ML IV SCH ×3 (05:36→21:38)
[2023-01-22] MEDS: MIDAZOLAM DRIP 50 mg/50mL 50 ML IV SCH ×2 (07:18→17:45)
[2023-01-22] MEDS: PANTOPRAZOLE 40 MG/10 ML VIAL INJ IV SCH ×2 (08:46→21:38)
[2023-01-22] MEDS: FLUCONAZOLE 200MG/100ML 100 ML IV SCH (08:47)
[2023-01-22] MEDS: FUROSEMIDE 40 MG/4 ML VIAL IV SCH (08:47)
[2023-01-22] MEDS: POTASSIUM EFFERVESENT TAB 25 MEQ PO SCH (08:48)
[2023-01-22 08:58] LABS: Eosinophils % (manual) 4 (0-7); Lymphocytes % (manual) 8 (10.0-50.0); Monocytes % (manual) 12 (0-12)
[2023-01-22 08:59] LABS: Band Neutrophils % (manual) 6
[2023-01-22 09:01] LABS: Platelet Estimate Increased; Polychromasia Slight
[2023-01-22] MEDS: VANCOMYCIN 1GM/250ML 250 ML IV SCH (12:24)
[2023-01-22] MEDS: NOREPINEPHRINE 8 MG/250ML KIT 250 ML IV SCH (12:24)
[2023-01-22] MEDS: LABETALOL HCL 5 MG/ML 4ML SYRINGE IV PRN (15:08)
[2023-01-23] VITALS (103 sets, daily range): BP systolic 82–189; BP diastolic 48–104; PULSE 90–128; RESP 10–44; TEMP 98.4–100.8; O2SAT 89–100
[2023-01-23] MEDS: PROPOFOL 100 ML IV SCH ×5 (00:21→22:45)
[2023-01-23] MEDS: MIDAZOLAM DRIP 50 mg/50mL 50 ML IV SCH ×3 (01:47→22:45)
[2023-01-23] MEDS: VANCOMYCIN 1GM/250ML 250 ML IV SCH ×2 (04:47→20:56)
[2023-01-23] MEDS: fentaNYL Drip 2500mCg/250mlNS 250 ML IV SCH ×2 (04:53→16:53)
[2023-01-23] MEDS: SODIUM CHLOR 0.9% PF (SALINE LOCK) 10ML VIAL/SYR IV SCH ×3 (06:25→21:35)
[2023-01-23] MEDS: CEFEPIME 2GM/50ML NS 50 ML IV SCH ×3 (06:25→21:35)
[2023-01-23 06:41] LABS: Base Excess 11.2 mmol/L (-2.0-2.0)
[2023-01-23] MEDS: FLUCONAZOLE 200MG/100ML 100 ML IV SCH (10:25)
[2023-01-23] MEDS: FUROSEMIDE 40 MG/4 ML VIAL IV SCH (10:25)
[2023-01-23] MEDS: POTASSIUM EFFERVESENT TAB 25 MEQ PO SCH (10:25)
[2023-01-23] MEDS: PANTOPRAZOLE 40 MG/10 ML VIAL INJ IV SCH ×2 (10:25→21:35)
[2023-01-23] MEDS: ACETAMINOPHEN 325 MG TAB PO PRN (11:52)
[2023-01-23] MEDS: LABETALOL HCL 5 MG/ML 4ML SYRINGE IV PRN (12:02)
[2023-01-23] MEDS ORDERED: PROPOFOL 100 ML IV ONE (16:23)
[2023-01-23] MEDS: NOREPINEPHRINE 8 MG/250ML KIT 250 ML IV SCH (20:30)
[2023-01-23] MEDS ORDERED: FUROSEMIDE 100 MG/10ML VIAL IV ONE (22:15)
[2023-01-24] VITALS (104 sets, daily range): BP systolic 84–157; BP diastolic 35–98; PULSE 91–127; RESP 12–23; TEMP 98.8–100.6; O2SAT 86–100
[2023-01-24] MEDS: fentaNYL Drip 2500mCg/250mlNS 250 ML IV SCH ×3 (03:28→22:08)
[2023-01-24] MEDS: PROPOFOL 100 ML IV SCH ×4 (03:52→21:30)
[2023-01-24] MEDS: CEFEPIME 2GM/50ML NS 50 ML IV SCH ×3 (06:04→21:39)
[2023-01-24] MEDS: SODIUM CHLOR 0.9% PF (SALINE LOCK) 10ML VIAL/SYR IV SCH ×3 (06:04→21:37)
[2023-01-24] MEDS: ACETAMINOPHEN 325 MG TAB PO PRN (07:47)
[2023-01-24 07:48] LABS: Hemoglobin 8.5 g/dL (12.2-16.2)
[2023-01-24 07:50] LABS: Hematocrit 26.9 % (36.0-46.0); Mean Corpuscular Hemoglobin 28.2 pg (28.0-32.0); Mean Corpuscular Hgb Conc. 31.5 g/dL (32.0-36.0); Mean Corpuscular Volume 89.8 fL (80.0-100.0); Red Cell Distribution Width 14.7 % (11.8-14.3); White Blood Cell 16.7 10^3/uL (4.4-10.8)
[2023-01-24 07:53] LABS: Band Neutrophils % (manual) 0; Basophils % (manual) 0 (0.0-2.0); Blast Cells 0; Metamyelocytes % 0; Myelocytes % 0; Promyelocytes % 0; Reactive Lymphocytes 0
[2023-01-24 08:11] LABS: Eosinophils % (manual) 6 (0-7); Lymphocytes % (manual) 9 (10.0-50.0); Monocytes % (manual) 7 (0-12); Platelet Estimate Markedly Increased
[2023-01-24 08:15] LABS: Alanine Aminotransferase 55 U/L (7-40); Albumin 3.3 g/dL (3.2-4.8); Alkaline Phosphatase 116 U/L (46-116); Anion Gap 3 (5-15); Aspartate Aminotransferase 41 U/L (13-40); BUN/Creatinine Ratio 21.7 (10.0-20.0); Bilirubin, Total 0.3 mg/dL (0.2-1.0); Blood Urea Nitrogen 10 mg/dL (9-23); Calcium 8.4 mg/dL (8.5-10.1); Carbon Dioxide 39 mmol/L (20-30); Chloride 97 mmol/L (98-107); Glucose 108 mg/dL (74-106); Potassium 3.7 mmol/L (3.5-5.1); Sodium 139 mmol/L (136-145); Total Protein 5.8 g/dL (5.7-8.2)
[2023-01-24] MEDS: MIDAZOLAM DRIP 50 mg/50mL 50 ML IV SCH ×2 (08:19→16:33)
[2023-01-24] MEDS: FUROSEMIDE 40 MG/4 ML VIAL IV SCH ×2 (09:56→21:37)
[2023-01-24] MEDS: PANTOPRAZOLE 40 MG/10 ML VIAL INJ IV SCH ×2 (09:56→21:37)
[2023-01-24] MEDS: FLUCONAZOLE 200MG/100ML 100 ML IV SCH (09:56)
[2023-01-24] MEDS: POTASSIUM EFFERVESENT TAB 25 MEQ PO SCH ×2 (09:57→21:38)
[2023-01-24 11:49] LABS: Base Excess 12.7 mmol/L (-2.0-2.0)
[2023-01-24] MEDS ORDERED: FUROSEMIDE 20 MG/2 ML VIAL IV ONE (12:15)
[2023-01-24] MEDS: VANCOMYCIN 1GM/250ML 250 ML IV SCH (13:21)
[2023-01-24] MEDS: NOREPINEPHRINE 8 MG/250ML KIT 250 ML IV SCH (20:30)
[2023-01-24] MEDS: Jevity 1.2 Cal/Fiber 1 Liter GT SCH (23:24)
[2023-01-25] VITALS (105 sets, daily range): BP systolic 91–164; BP diastolic 53–99; PULSE 89–136; RESP 11–24; TEMP 97.9–101.1; O2SAT 90–100
[2023-01-25] MEDS: MIDAZOLAM DRIP 50 mg/50mL 50 ML IV SCH ×4 (00:29→22:13)
[2023-01-25] MEDS: PROPOFOL 100 ML IV SCH ×6 (01:45→23:55)
[2023-01-25] MEDS: VANCOMYCIN 1GM/250ML 250 ML IV SCH ×2 (04:32→21:35)
[2023-01-25 04:33] LABS: Alanine Aminotransferase 42 U/L (7-40); Albumin 2.9 g/dL (3.2-4.8); Alkaline Phosphatase 112 U/L (46-116); Anion Gap 3 (5-15); Aspartate Aminotransferase 42 U/L (13-40); BUN/Creatinine Ratio 27.5 (10.0-20.0); Blood Urea Nitrogen 14 mg/dL (9-23); Carbon Dioxide 38 mmol/L (20-30); Chloride 97 mmol/L (98-107); Glucose 103 mg/dL (74-106); Potassium 3.5 mmol/L (3.5-5.1); Sodium 138 mmol/L (136-145)
[2023-01-25 04:34] LABS: Bilirubin, Total 0.2 mg/dL (0.2-1.0); Total Protein 5.2 g/dL (5.7-8.2)
[2023-01-25 04:36] LABS: Hemoglobin 7.5 g/dL (12.2-16.2)
[2023-01-25 04:38] LABS: Hematocrit 22.8 % (36.0-46.0); Mean Corpuscular Hemoglobin 29.4 pg (28.0-32.0); Mean Corpuscular Hgb Conc. 32.8 g/dL (32.0-36.0); Mean Corpuscular Volume 89.6 fL (80.0-100.0); Red Blood Cells 2.55 10^6/uL (4.0-5.20); Red Cell Distribution Width 14.5 % (11.8-14.3); White Blood Cell 13.2 10^3/uL (4.4-10.8)
[2023-01-25 04:40] LABS: Basophils % (manual) 0 (0.0-2.0); Blast Cells 0; Metamyelocytes % 0; Myelocytes % 0; Promyelocytes % 0; Reactive Lymphocytes 0
[2023-01-25 04:54] LABS: Erythrocyte Sedimentation Rate 124 mm/hr (0-20)
[2023-01-25] MEDS: SODIUM CHLOR 0.9% PF (SALINE LOCK) 10ML VIAL/SYR IV SCH ×3 (05:30→21:40)
[2023-01-25] MEDS: CEFEPIME 2GM/50ML NS 50 ML IV SCH ×2 (05:30→13:43)
[2023-01-25 06:12] LABS: Band Neutrophils % (manual) 5; Eosinophils % (manual) 7 (0-7); Lymphocytes % (manual) 8 (10.0-50.0); Monocytes % (manual) 6 (0-12); Platelet Estimate Increased
[2023-01-25] MEDS: fentaNYL Drip 2500mCg/250mlNS 250 ML IV SCH ×2 (07:15→20:21)
[2023-01-25] MEDS ORDERED: fentaNYL Drip 2500mCg/250mlNS 250 ML IV ONE (07:17)
[2023-01-25 07:58] LABS: Base Excess 9.7 mmol/L (-2.0-2.0)
[2023-01-25] MEDS: ALBUTEROL MEDNEB 2.5 mg/3ml NEB NEB PRN ×4 (08:32→18:50)
[2023-01-25] MEDS: PANTOPRAZOLE 40 MG/10 ML VIAL INJ IV SCH ×2 (10:37→21:39)
[2023-01-25] MEDS: FUROSEMIDE 40 MG/4 ML VIAL IV SCH ×2 (10:38→21:39)
[2023-01-25] MEDS: POTASSIUM EFFERVESENT TAB 25 MEQ PO SCH ×2 (10:38→21:40)
[2023-01-25] MEDS: FLUCONAZOLE 200MG/100ML 100 ML IV SCH (10:38)
[2023-01-25] MEDS: ACETAMINOPHEN 325 MG TAB PO PRN (13:06)
[2023-01-25] MEDS: LABETALOL HCL 5 MG/ML 4ML SYRINGE IV PRN (14:27)
[2023-01-25] MEDS ORDERED: MEROPENEM 1GM IVPB 100 ML IV ONE (15:00)
[2023-01-25] MEDS: IPRATROPIUM BROM 0.5 MG/2.5ML INH SOL NEB PRN (18:50)
[2023-01-25] MEDS: NOREPINEPHRINE 8 MG/250ML KIT 250 ML IV SCH (20:28)
[2023-01-25] MEDS: MEROPENEM 1GM IVPB 100 ML IV SCH (22:51)
[2023-01-26] VITALS (111 sets, daily range): BP systolic 81–231; BP diastolic 44–155; PULSE 93–127; RESP 12–20; TEMP 97–100.4; O2SAT 90–100
[2023-01-26] MEDS: ACETAMINOPHEN 325 MG TAB PO PRN (00:35)
[2023-01-26] MEDS: LABETALOL HCL 5 MG/ML 4ML SYRINGE IV PRN ×2 (00:39→14:34)
[2023-01-26] MEDS: MIDAZOLAM DRIP 50 mg/50mL 50 ML IV SCH ×4 (04:03→22:12)
[2023-01-26] MEDS: PROPOFOL 100 ML IV SCH ×4 (04:03→20:29)
[2023-01-26 05:21] LABS: Basophils # (auto) 0 10 ^3/uL (0-0.2); Basophils % (auto) 0.1 % (0.0-2.0); Eosinophils # (auto) 0.5 10 ^3/uL (0-0.8); Eosinophils % (auto) 2.7 % (0.0-7.0); Hematocrit 30.5 % (36.0-46.0); Hemoglobin 9.8 g/dL (12.2-16.2); Lymphocytes # (auto) 0.9 10 ^3/uL (0.4-5.4); Lymphocytes % (auto) 4.4 % (10.0-50.0); Mean Corpuscular Hemoglobin 28.5 pg (28.0-32.0); Mean Corpuscular Hgb Conc. 32.2 g/dL (32.0-36.0); Mean Corpuscular Volume 88.4 fL (80.0-100.0); Monocytes # (auto) 1.5 10 ^3/uL (0-1.3); Monocytes % (auto) 7.5 % (0.0-12.0); Neutrophils # (auto) 17.6 10 ^3/uL (1.6-8.6); Neutrophils % (auto) 85.3 % (37.0-80.0); Nucleated Red Blood Cells % 0.1 %; Red Blood Cells 3.45 10^6/uL (4.0-5.20); White Blood Cell 20.6 10^3/uL (4.4-10.8)
[2023-01-26 05:32] LABS: INR 1.03 (0.9-1.15); Partial Thromboplastin Time 29.2 SEC (24.5-34.5); Prothrombin Time 10.8 sec (9.3-11.8)
[2023-01-26 05:44] LABS: Alanine Aminotransferase 37 U/L (7-40); Albumin 3.2 g/dL (3.2-4.8); Alkaline Phosphatase 122 U/L (46-116); Anion Gap 5 (5-15); Aspartate Aminotransferase 39 U/L (13-40); Blood Urea Nitrogen 13 mg/dL (9-23); Calcium 8.3 mg/dL (8.7-10.4); Carbon Dioxide 35 mmol/L (20-30); Chloride 96 mmol/L (98-107); Glucose 116 mg/dL (74-106); Potassium 4.3 mmol/L (3.5-5.1); Sodium 136 mmol/L (136-145)
[2023-01-26 05:45] LABS: Bilirubin, Total 0.2 mg/dL (0.2-1.0); Total Protein 5.9 g/dL (5.7-8.2)
[2023-01-26] MEDS: SODIUM CHLOR 0.9% PF (SALINE LOCK) 10ML VIAL/SYR IV SCH ×4 (06:11→21:57)
[2023-01-26] MEDS: MEROPENEM 1GM IVPB 100 ML IV SCH ×3 (06:12→22:00)
[2023-01-26] MEDS: fentaNYL Drip 2500mCg/250mlNS 250 ML IV SCH ×2 (06:25→18:35)
[2023-01-26] MEDS: ALBUTEROL MEDNEB 2.5 mg/3ml NEB NEB SCH ×4 (06:37→13:43)
[2023-01-26 07:49] LABS: Base Excess 8.3 mmol/L (-2.0-2.0)
[2023-01-26] MEDS: PANTOPRAZOLE 40 MG/10 ML VIAL INJ IV SCH ×2 (08:23→21:59)
[2023-01-26] MEDS: FUROSEMIDE 40 MG/4 ML VIAL IV SCH ×2 (08:23→22:00)
[2023-01-26] MEDS: FLUCONAZOLE 200MG/100ML 100 ML IV SCH (08:23)
[2023-01-26] MEDS: POTASSIUM EFFERVESENT TAB 25 MEQ PO SCH ×2 (08:23→21:59)
[2023-01-26] MEDS: VANCOMYCIN 1GM/250ML 250 ML IV SCH ×2 (10:45→23:52)
[2023-01-26] MEDS ORDERED: LIDOCAINE 1% (LOCAL ANESTH.) PF 5ml SDV ID ONE (12:30)
[2023-01-26] MEDS: NOREPINEPHRINE 8 MG/250ML KIT 250 ML IV SCH (15:54)
[2023-01-27] VITALS (108 sets, daily range): BP systolic 94–195; BP diastolic 51–122; PULSE 79–124; RESP 12–19; TEMP 97.3–99.7; O2SAT 89–98
[2023-01-27] MEDS: ALBUTEROL MEDNEB 2.5 mg/3ml NEB NEB SCH ×4 (00:11→19:02)
[2023-01-27] MEDS: PROPOFOL 100 ML IV SCH ×5 (00:56→22:05)
[2023-01-27 04:41] LABS: Alanine Aminotransferase 27 U/L (7-40); Alkaline Phosphatase 107 U/L (46-116); Anion Gap 3 (5-15); BUN/Creatinine Ratio 26.7 (10.0-20.0); Blood Urea Nitrogen 12 mg/dL (9-23); Calcium 7.7 mg/dL (8.7-10.4); Carbon Dioxide 35 mmol/L (20-30); Chloride 101 mmol/L (98-107); Glucose 81 mg/dL (74-106); Potassium 3.6 mmol/L (3.5-5.1); Sodium 139 mmol/L (136-145)
[2023-01-27 04:42] LABS: Albumin 2.8 g/dL (3.2-4.8); Aspartate Aminotransferase 30 U/L (13-40); Bilirubin, Total 0.2 mg/dL (0.2-1.0); Total Protein 5.1 g/dL (5.7-8.2)
[2023-01-27] MEDS: MIDAZOLAM DRIP 50 mg/50mL 50 ML IV SCH ×4 (05:12→22:09)
[2023-01-27] MEDS: SODIUM CHLOR 0.9% PF (SALINE LOCK) 10ML VIAL/SYR IV SCH ×5 (05:52→22:08)
[2023-01-27] MEDS: MEROPENEM 1GM IVPB 100 ML IV SCH ×3 (05:52→22:06)
[2023-01-27] MEDS: IPRATROPIUM BROM 0.5 MG/2.5ML INH SOL NEB PRN ×3 (06:01→19:02)
[2023-01-27] MEDS: fentaNYL Drip 2500mCg/250mlNS 250 ML IV SCH ×2 (07:47→15:13)
[2023-01-27] MEDS: LABETALOL HCL 5 MG/ML 4ML SYRINGE IV PRN (08:20)
[2023-01-27 08:59] LABS: Nucleated Red Blood Cells % 0.1 %
[2023-01-27 09:02] LABS: Basophils # (auto) 0.1 10 ^3/uL (0-0.2); Basophils % (auto) 0.3 % (0.0-2.0); Eosinophils # (auto) 0.5 10 ^3/uL (0-0.8); Eosinophils % (auto) 2.9 % (0.0-7.0); Hematocrit 31.2 % (36.0-46.0); Lymphocytes # (auto) 1.1 10 ^3/uL (0.4-5.4); Lymphocytes % (auto) 5.9 % (10.0-50.0); Mean Corpuscular Hemoglobin 28.5 pg (28.0-32.0); Mean Corpuscular Hgb Conc. 31.9 g/dL (32.0-36.0); Mean Corpuscular Volume 89.4 fL (80.0-100.0); Monocytes # (auto) 1.7 10 ^3/uL (0-1.3); Monocytes % (auto) 9.6 % (0.0-12.0); Neutrophils # (auto) 14.8 10 ^3/uL (1.6-8.6); Neutrophils % (auto) 81.3 % (37.0-80.0); Red Blood Cells 3.49 10^6/uL (4.0-5.20); Red Cell Distribution Width 15.2 % (11.8-14.3); White Blood Cell 18.2 10^3/uL (4.4-10.8)
[2023-01-27] MEDS: PANTOPRAZOLE 40 MG/10 ML VIAL INJ IV SCH ×2 (09:20→22:07)
[2023-01-27] MEDS: FUROSEMIDE 40 MG/4 ML VIAL IV SCH ×2 (09:20→22:07)
[2023-01-27] MEDS: POTASSIUM EFFERVESENT TAB 25 MEQ PO SCH ×2 (09:21→22:08)
[2023-01-27] MEDS: FLUCONAZOLE 200MG/100ML 100 ML IV SCH ×2 (09:21→11:14)
[2023-01-27 09:22] LABS: Base Excess 10.1 mmol/L (-2.0-2.0)
[2023-01-27] MEDS ORDERED: METOPROLOL TARTRATE 50 MG TAB PO ONE (12:00)
[2023-01-27 12:26] LABS: INR 1.03 (0.9-1.15); Partial Thromboplastin Time 29.3 SEC (24.5-34.5); Prothrombin Time 10.8 sec (9.3-11.8)
[2023-01-27] MEDS: VANCOMYCIN 1GM/250ML 250 ML IV SCH ×2 (13:05→23:00)
[2023-01-27] MEDS: HEPARIN DRIP/D5W 100UNITS/ML 250 ML IV SCH (13:21)
[2023-01-27] MEDS: NOREPINEPHRINE 8 MG/250ML KIT 250 ML IV SCH (20:30)
[2023-01-27 20:49] LABS: INR 1.04 (0.9-1.15); Partial Thromboplastin Time 63.2 SEC (24.5-34.5); Prothrombin Time 10.9 sec (9.3-11.8)
[2023-01-27] MEDS: METOPROLOL TARTRATE 50 MG TAB PO SCH (22:31)
[2023-01-28] VITALS (105 sets, daily range): BP systolic 94–150; BP diastolic 47–81; PULSE 79–102; RESP 14–28; TEMP 97–99; O2SAT 92–100
[2023-01-28] MEDS: fentaNYL Drip 2500mCg/250mlNS 250 ML IV SCH ×4 (00:07→20:28)
[2023-01-28] MEDS: IPRATROPIUM BROM 0.5 MG/2.5ML INH SOL NEB PRN ×2 (00:35→18:41)
[2023-01-28] MEDS: ALBUTEROL MEDNEB 2.5 mg/3ml NEB NEB SCH ×4 (00:35→18:41)
[2023-01-28 02:32] LABS: Basophils # (auto) 0.1 10 ^3/uL (0-0.2); Eosinophils # (auto) 0.5 10 ^3/uL (0-0.8); Lymphocytes # (auto) 1.8 10 ^3/uL (0.4-5.4); Lymphocytes % (auto) 12.3 % (10.0-50.0); Nucleated Red Blood Cells % 0.2 %
[2023-01-28 02:33] LABS: Basophils % (auto) 0.5 % (0.0-2.0); Eosinophils % (auto) 3.7 % (0.0-7.0); Hematocrit 28.6 % (36.0-46.0); Hemoglobin 9.1 g/dL (12.2-16.2); Mean Corpuscular Hemoglobin 29.1 pg (28.0-32.0); Mean Corpuscular Volume 90.9 fL (80.0-100.0); Monocytes # (auto) 1.4 10 ^3/uL (0-1.3); Neutrophils # (auto) 10.7 10 ^3/uL (1.6-8.6); Neutrophils % (auto) 73.5 % (37.0-80.0); Red Blood Cells 3.15 10^6/uL (4.0-5.20); Red Cell Distribution Width 15.1 % (11.8-14.3); White Blood Cell 14.5 10^3/uL (4.4-10.8)
[2023-01-28 02:51] LABS: INR 1.05 (0.9-1.15); Partial Thromboplastin Time 52.8 SEC (24.5-34.5)
[2023-01-28 02:56] LABS: Alanine Aminotransferase 23 U/L (7-40); Alkaline Phosphatase 99 U/L (46-116); Anion Gap 2 (5-15); Aspartate Aminotransferase 28 U/L (13-40); BUN/Creatinine Ratio 19.1 (10.0-20.0); Bilirubin, Total 0.2 mg/dL (0.2-1.0); Blood Urea Nitrogen 9 mg/dL (9-23); Calcium 8.5 mg/dL (8.7-10.4); Carbon Dioxide 34 mmol/L (20-30); Chloride 100 mmol/L (98-107); Glucose 96 mg/dL (74-106); Magnesium 2.4 mg/dL (1.6-2.6); Potassium 3.9 mmol/L (3.5-5.1); Sodium 136 mmol/L (136-145); Total Protein 5.5 g/dL (5.7-8.2)
[2023-01-28] MEDS: PROPOFOL 100 ML IV SCH ×6 (04:39→22:02)
[2023-01-28] MEDS: MIDAZOLAM DRIP 50 mg/50mL 50 ML IV SCH ×5 (04:39→23:51)
[2023-01-28] MEDS: MEROPENEM 1GM IVPB 100 ML IV SCH ×3 (05:54→22:02)
[2023-01-28] MEDS: SODIUM CHLOR 0.9% PF (SALINE LOCK) 10ML VIAL/SYR IV SCH ×5 (05:55→22:03)
[2023-01-28] MEDS: HEPARIN DRIP/D5W 100UNITS/ML 250 ML IV SCH ×2 (06:15→22:54)
[2023-01-28 08:28] LABS: Base Excess 13.7 mmol/L (-2.0-2.0)
[2023-01-28] MEDS ORDERED: VANCOMYCIN PER PHARMACY 0 MG IV SCH (09:00)
[2023-01-28 09:22] LABS: INR 1.04 (0.9-1.15); Partial Thromboplastin Time 67.2 SEC (24.5-34.5); Prothrombin Time 10.9 sec (9.3-11.8)
[2023-01-28] MEDS: METOPROLOL TARTRATE 50 MG TAB PO SCH ×2 (10:00→22:04)
[2023-01-28] MEDS ORDERED: VANCOMYCIN 1GM/250ML 250 ML IV SCH (10:00)
[2023-01-28] MEDS: FLUCONAZOLE 200MG/100ML 100 ML IV SCH ×2 (10:29→11:49)
[2023-01-28] MEDS: PANTOPRAZOLE 40 MG/10 ML VIAL INJ IV SCH ×2 (10:34→22:02)
[2023-01-28] MEDS: FUROSEMIDE 40 MG/4 ML VIAL IV SCH ×2 (10:35→22:02)
[2023-01-28] MEDS: POTASSIUM EFFERVESENT TAB 25 MEQ PO SCH ×2 (10:35→22:02)
[2023-01-28] MEDS ORDERED: acetaZOLAMIDE SODIUM 500 MG VL IV ONE (14:45)
[2023-01-28] MEDS: NOREPINEPHRINE 8 MG/250ML KIT 250 ML IV SCH (20:30)
[2023-01-29] VITALS (114 sets, daily range): BP systolic 82–151; BP diastolic 42–96; PULSE 81–122; RESP 13–21; TEMP 96.8–100; O2SAT 90–100
[2023-01-29] MEDS: ALBUTEROL MEDNEB 2.5 mg/3ml NEB NEB SCH ×4 (00:01→18:35)
[2023-01-29] MEDS: IPRATROPIUM BROM 0.5 MG/2.5ML INH SOL NEB PRN ×4 (00:01→22:29)
[2023-01-29] MEDS: PROPOFOL 100 ML IV SCH ×4 (03:35→19:56)
[2023-01-29] MEDS: fentaNYL Drip 2500mCg/250mlNS 250 ML IV SCH ×3 (04:04→19:58)
[2023-01-29 04:11] LABS: Basophils # (auto) 0.1 10 ^3/uL (0-0.2); Eosinophils # (auto) 0.4 10 ^3/uL (0-0.8); Hemoglobin 9.3 g/dL (12.2-16.2); Neutrophils # (auto) 7.8 10 ^3/uL (1.6-8.6)
[2023-01-29 04:12] LABS: Basophils % (auto) 0.9 % (0.0-2.0); Eosinophils % (auto) 3.3 % (0.0-7.0); Hematocrit 28.9 % (36.0-46.0); Lymphocytes # (auto) 1.5 10 ^3/uL (0.4-5.4); Lymphocytes % (auto) 13.8 % (10.0-50.0); Mean Corpuscular Hemoglobin 29.2 pg (28.0-32.0); Mean Corpuscular Hgb Conc. 32.1 g/dL (32.0-36.0); Mean Corpuscular Volume 90.7 fL (80.0-100.0); Monocytes # (auto) 1.2 10 ^3/uL (0-1.3); Monocytes % (auto) 11.1 % (0.0-12.0); Neutrophils % (auto) 70.9 % (37.0-80.0); Nucleated Red Blood Cells % 0.2 %; Red Blood Cells 3.19 10^6/uL (4.0-5.20); Red Cell Distribution Width 14.9 % (11.8-14.3)
[2023-01-29 04:36] LABS: Alanine Aminotransferase 15 U/L (7-40); Alkaline Phosphatase 101 U/L (46-116); Anion Gap 5 (5-15); Aspartate Aminotransferase 31 U/L (13-40); Calcium 8.5 mg/dL (8.7-10.4); Carbon Dioxide 30 mmol/L (20-30); Chloride 103 mmol/L (98-107); Potassium 3.7 mmol/L (3.5-5.1); Sodium 138 mmol/L (136-145)
[2023-01-29 04:37] LABS: Albumin 3.1 g/dL (3.2-4.8); BUN/Creatinine Ratio 13.1 (10.0-20.0); Blood Urea Nitrogen 8 mg/dL (9-23); Glucose 99 mg/dL (74-106)
[2023-01-29 04:39] LABS: Bilirubin, Total < 0.2 mg/dL (0.2-1.0); Total Protein 5.7 g/dL (5.7-8.2)
[2023-01-29] MEDS: MEROPENEM 1GM IVPB 100 ML IV SCH ×3 (05:47→21:48)
[2023-01-29] MEDS: SODIUM CHLOR 0.9% PF (SALINE LOCK) 10ML VIAL/SYR IV SCH ×5 (05:48→21:48)
[2023-01-29] MEDS: MIDAZOLAM DRIP 50 mg/50mL 50 ML IV SCH ×4 (05:49→23:26)
[2023-01-29] MEDS: METOPROLOL TARTRATE 50 MG TAB PO SCH ×2 (07:24→22:00)
[2023-01-29 08:05] LABS: Base Excess 8.5 mmol/L (-2.0-2.0)
[2023-01-29] MEDS: PANTOPRAZOLE 40 MG/10 ML VIAL INJ IV SCH ×2 (08:28→21:48)
[2023-01-29] MEDS: FUROSEMIDE 40 MG/4 ML VIAL IV SCH ×2 (08:29→21:47)
[2023-01-29] MEDS: FLUCONAZOLE 200MG/100ML 100 ML IV SCH ×2 (08:31→10:15)
[2023-01-29] MEDS: POTASSIUM EFFERVESENT TAB 25 MEQ PO SCH ×2 (08:31→21:49)
[2023-01-29 12:00] LABS: INR 1.06 (0.9-1.15); Prothrombin Time 11.1 sec (9.3-11.8)
[2023-01-29 12:07] LABS: Partial Thromboplastin Time 91.9 SEC (24.5-34.5)
[2023-01-29] MEDS: NOREPINEPHRINE 8 MG/250ML KIT 250 ML IV SCH (13:13)
[2023-01-29] MEDS: HEPARIN DRIP/D5W 100UNITS/ML 250 ML IV SCH ×2 (13:30→19:55)
[2023-01-29] MEDS: ALBUTEROL MEDNEB 2.5 mg/3ml NEB NEB PRN ×2 (13:57→22:29)
[2023-01-29 20:15] LABS: INR 1.07 (0.9-1.15); Partial Thromboplastin Time 44.1 SEC (24.5-34.5); Prothrombin Time 11.2 sec (9.3-11.8)
[2023-01-29 22:48] LABS: Base Excess 9.2 mmol/L (-2.0-2.0)
[2023-01-30] VITALS (110 sets, daily range): BP systolic 99–190; BP diastolic 54–98; PULSE 67–124; RESP 13–19; TEMP 97.9–99.3; O2SAT 92–100
[2023-01-30] MEDS: ALBUTEROL MEDNEB 2.5 mg/3ml NEB NEB SCH ×5 (00:42→23:26)
[2023-01-30] MEDS: PROPOFOL 100 ML IV SCH ×6 (01:18→22:40)
[2023-01-30] MEDS: ALBUTEROL MEDNEB 2.5 mg/3ml NEB NEB PRN (02:19)
[2023-01-30] MEDS: IPRATROPIUM BROM 0.5 MG/2.5ML INH SOL NEB PRN (02:19)
[2023-01-30 03:25] LABS: Chloride 104 mmol/L (98-107); Potassium 3.8 mmol/L (3.5-5.1); Sodium 140 mmol/L (136-145)
[2023-01-30 03:26] LABS: Anion Gap 5 (5-15); Basophils # (auto) 0.1 10 ^3/uL (0-0.2); Carbon Dioxide 31 mmol/L (20-30); Eosinophils # (auto) 0.4 10 ^3/uL (0-0.8); Hemoglobin 7.3 g/dL (12.2-16.2); Nucleated Red Blood Cells % 0.1 %
[2023-01-30 03:27] LABS: Calcium 8.7 mg/dL (8.7-10.4)
[2023-01-30 03:30] LABS: Eosinophils % (auto) 3.2 % (0.0-7.0); Hematocrit 23.2 % (36.0-46.0); Lymphocytes # (auto) 1.9 10 ^3/uL (0.4-5.4); Lymphocytes % (auto) 15.8 % (10.0-50.0); Mean Corpuscular Hemoglobin 28.4 pg (28.0-32.0); Mean Corpuscular Hgb Conc. 31.6 g/dL (32.0-36.0); Mean Corpuscular Volume 89.7 fL (80.0-100.0); Monocytes # (auto) 1.4 10 ^3/uL (0-1.3); Monocytes % (auto) 11.4 % (0.0-12.0); Neutrophils # (auto) 8.2 10 ^3/uL (1.6-8.6); Neutrophils % (auto) 68.6 % (37.0-80.0); Red Blood Cells 2.58 10^6/uL (4.0-5.20); Red Cell Distribution Width 15.5 % (11.8-14.3); White Blood Cell 11.9 10^3/uL (4.4-10.8)
[2023-01-30 03:31] LABS: Glucose 101 mg/dL (74-106)
[2023-01-30 03:32] LABS: BUN/Creatinine Ratio 16.4 (10.0-20.0); Blood Urea Nitrogen 10 mg/dL (9-23)
[2023-01-30 03:44] LABS: INR 1.08 (0.9-1.15); Partial Thromboplastin Time 25.4 SEC (24.5-34.5); Prothrombin Time 11.3 sec (9.3-11.8)
[2023-01-30] MEDS ORDERED: HEPARIN SODIUM (PORCINE) 5000 UNITS/ML 1ML VIAL IV ONE (04:00)
[2023-01-30] MEDS ORDERED: HEPARIN DRIP/D5W 100UNITS/ML 250 ML IV SCH (04:00)
[2023-01-30] MEDS: fentaNYL Drip 2500mCg/250mlNS 250 ML IV SCH ×3 (04:10→20:46)
[2023-01-30] MEDS: MIDAZOLAM DRIP 50 mg/50mL 50 ML IV SCH ×4 (04:33→21:58)
[2023-01-30] MEDS: MEROPENEM 1GM IVPB 100 ML IV SCH ×3 (05:42→22:01)
[2023-01-30] MEDS: SODIUM CHLOR 0.9% PF (SALINE LOCK) 10ML VIAL/SYR IV SCH ×5 (05:42→22:01)
[2023-01-30 08:20] LABS: Base Excess 7.6 mmol/L (-2.0-2.0)
[2023-01-30] MEDS: PANTOPRAZOLE 40 MG/10 ML VIAL INJ IV SCH ×2 (08:20→22:00)
[2023-01-30] MEDS: POTASSIUM EFFERVESENT TAB 25 MEQ PO SCH ×2 (08:21→21:59)
[2023-01-30] MEDS: FUROSEMIDE 40 MG/4 ML VIAL IV SCH ×2 (08:21→22:00)
[2023-01-30] MEDS: FLUCONAZOLE 200MG/100ML 100 ML IV SCH ×2 (08:21→09:29)
[2023-01-30] MEDS: METOPROLOL TARTRATE 50 MG TAB PO SCH ×2 (08:21→21:59)
[2023-01-30 10:16] LABS: Basophils # (auto) 0.1 10 ^3/uL (0-0.2); Eosinophils # (auto) 0.3 10 ^3/uL (0-0.8); Neutrophils # (auto) 7.5 10 ^3/uL (1.6-8.6); Nucleated Red Blood Cells % 0.1 %; Red Cell Distribution Width 15.1 % (11.8-14.3)
[2023-01-30 10:17] LABS: Basophils % (auto) 0.8 % (0.0-2.0); Hematocrit 28.5 % (36.0-46.0); Hemoglobin 9.4 g/dL (12.2-16.2); Lymphocytes % (auto) 10.3 % (10.0-50.0); Mean Corpuscular Hemoglobin 29.1 pg (28.0-32.0); Mean Corpuscular Hgb Conc. 33.1 g/dL (32.0-36.0); Monocytes % (auto) 10.1 % (0.0-12.0); Neutrophils % (auto) 75.8 % (37.0-80.0); Red Blood Cells 3.24 10^6/uL (4.0-5.20); White Blood Cell 9.8 10^3/uL (4.4-10.8)
[2023-01-30] MEDS: HEPARIN DRIP/D5W 100UNITS/ML 250 ML IV SCH (12:47)
[2023-01-30] MEDS: NOREPINEPHRINE 8 MG/250ML KIT 250 ML IV SCH (12:47)
[2023-01-30] MEDS: Jevity 1.2 Cal/Fiber 1 Liter GT SCH (19:00)
[2023-01-30 19:11] LABS: INR 1.08 (0.9-1.15); Partial Thromboplastin Time 65.4 SEC (24.5-34.5); Prothrombin Time 11.3 sec (9.3-11.8)
[2023-01-30] MEDS: LABETALOL HCL 5 MG/ML 4ML SYRINGE IV PRN (21:43)
[2023-01-31] VITALS (107 sets, daily range): BP systolic 96–156; BP diastolic 50–104; PULSE 80–113; RESP 11–29; TEMP 96.4–99.3; O2SAT 88–100
[2023-01-31 01:11] LABS: INR 1.09 (0.9-1.15); Prothrombin Time 11.4 sec (9.3-11.8)
[2023-01-31 01:25] LABS: Partial Thromboplastin Time 78.3 SEC (24.5-34.5)
[2023-01-31] MEDS: MIDAZOLAM DRIP 50 mg/50mL 50 ML IV SCH ×4 (03:05→22:22)
[2023-01-31] MEDS: HEPARIN DRIP/D5W 100UNITS/ML 250 ML IV SCH ×2 (03:50→05:30)
[2023-01-31 04:04] LABS: Eosinophils # (auto) 0.4 10 ^3/uL (0-0.8); Hemoglobin 9.2 g/dL (12.2-16.2); Neutrophils # (auto) 6.2 10 ^3/uL (1.6-8.6); Neutrophils % (auto) 69.1 % (37.0-80.0)
[2023-01-31 04:07] LABS: Basophils # (auto) 0 10 ^3/uL (0-0.2); Basophils % (auto) 0.2 % (0.0-2.0); Eosinophils % (auto) 4.5 % (0.0-7.0); Hematocrit 27.6 % (36.0-46.0); Lymphocytes # (auto) 1.4 10 ^3/uL (0.4-5.4); Lymphocytes % (auto) 15.4 % (10.0-50.0); Mean Corpuscular Hemoglobin 29.5 pg (28.0-32.0); Mean Corpuscular Hgb Conc. 33.5 g/dL (32.0-36.0); Mean Corpuscular Volume 87.9 fL (80.0-100.0); Monocytes % (auto) 10.8 % (0.0-12.0); Nucleated Red Blood Cells % 0.1 %; Red Blood Cells 3.13 10^6/uL (4.0-5.20)
[2023-01-31] MEDS: PROPOFOL 100 ML IV SCH ×5 (04:17→22:42)
[2023-01-31 04:24] LABS: Anion Gap 5 (5-15); Carbon Dioxide 32 mmol/L (20-30); Chloride 105 mmol/L (98-107); Potassium 3.4 mmol/L (3.5-5.1); Sodium 142 mmol/L (136-145)
[2023-01-31 04:26] LABS: Calcium 8.9 mg/dL (8.7-10.4)
[2023-01-31 04:30] LABS: Glucose 98 mg/dL (74-106)
[2023-01-31 04:31] LABS: BUN/Creatinine Ratio 15.5 (10.0-20.0); Blood Urea Nitrogen 9 mg/dL (9-23)
[2023-01-31] MEDS: fentaNYL Drip 2500mCg/250mlNS 250 ML IV SCH ×3 (05:12→22:20)
[2023-01-31] MEDS: MEROPENEM 1GM IVPB 100 ML IV SCH ×3 (05:28→22:13)
[2023-01-31] MEDS: SODIUM CHLOR 0.9% PF (SALINE LOCK) 10ML VIAL/SYR IV SCH ×5 (05:28→22:13)
[2023-01-31] MEDS: ALBUTEROL MEDNEB 2.5 mg/3ml NEB NEB SCH ×3 (07:13→18:39)
[2023-01-31] MEDS: IPRATROPIUM BROM 0.5 MG/2.5ML INH SOL NEB PRN ×3 (07:13→18:54)
[2023-01-31 08:18] LABS: Platelet Estimate Markedly Increased
[2023-01-31 08:38] LABS: INR 1.09 (0.9-1.15); Partial Thromboplastin Time 21.9 SEC (24.5-34.5); Prothrombin Time 11.4 sec (9.3-11.8)
[2023-01-31 08:41] LABS: Base Excess 4.8 mmol/L (-2.0-2.0)
[2023-01-31] MEDS ORDERED: POTASSIUM CHL 20MEQ/100ML 100 ML IV ONE (09:00)
[2023-01-31] MEDS ORDERED: HEPARIN SODIUM (PORCINE) 5000 UNITS/ML 1ML VIAL IV ONE (09:15)
[2023-01-31] MEDS: PANTOPRAZOLE 40 MG/10 ML VIAL INJ IV SCH ×2 (09:32→22:13)
[2023-01-31] MEDS: POTASSIUM EFFERVESENT TAB 25 MEQ PO SCH ×2 (09:34→22:12)
[2023-01-31] MEDS: METOPROLOL TARTRATE 50 MG TAB PO SCH (09:34)
[2023-01-31] MEDS: FUROSEMIDE 40 MG/4 ML VIAL IV SCH (09:35)
[2023-01-31] MEDS: FLUCONAZOLE 200MG/100ML 100 ML IV SCH ×2 (09:36→11:11)
[2023-01-31] MEDS: BUMETANIDE INJECTION 12.5 MG in GIVE UN-DILUTED 0 ML IV SCH (15:37)
[2023-01-31 16:53] LABS: INR 1.11 (0.9-1.15); Prothrombin Time 11.8 sec (9.3-11.8)
[2023-01-31 16:54] LABS: Partial Thromboplastin Time 103.1 SEC (24.5-34.5)
[2023-01-31] MEDS ORDERED: HEPARIN DRIP/D5W 100UNITS/ML 250 ML IV SCH (17:15)
[2023-01-31] MEDS: Jevity 1.2 Cal/Fiber 1 Liter GT SCH (20:00)
[2023-01-31] MEDS: NOREPINEPHRINE 8 MG/250ML KIT 250 ML IV SCH (20:30)
[2023-01-31 21:42] LABS: INR 1.09 (0.9-1.15); Partial Thromboplastin Time 43.2 SEC (24.5-34.5); Prothrombin Time 11.4 sec (9.3-11.8)
[2023-01-31] MEDS: METOPROLOL TARTRATE 25 MG TAB PO SCH (22:13)
[2023-01-31 22:19] LABS: Erythrocyte Sedimentation Rate 106 mm/hr (0-20)
[2023-02-01] VITALS (109 sets, daily range): BP systolic 86–127; BP diastolic 43–74; PULSE 93–115; RESP 13–40; TEMP 97.5–99.7; O2SAT 16–100
[2023-02-01] MEDS: ALBUTEROL MEDNEB 2.5 mg/3ml NEB NEB SCH ×4 (00:20→18:25)
[2023-02-01] MEDS: IPRATROPIUM BROM 0.5 MG/2.5ML INH SOL NEB PRN (00:20)
[2023-02-01] MEDS: MIDAZOLAM DRIP 50 mg/50mL 50 ML IV SCH ×4 (01:13→18:26)
[2023-02-01] MEDS: PROPOFOL 100 ML IV SCH ×4 (02:44→19:38)
[2023-02-01 04:12] LABS: Hemoglobin 10.1 g/dL (12.2-16.2); Nucleated Red Blood Cells % 0.1 %
[2023-02-01 04:16] LABS: Basophils # (auto) 0.1 10 ^3/uL (0-0.2); Basophils % (auto) 1.3 % (0.0-2.0); Eosinophils # (auto) 0.4 10 ^3/uL (0-0.8); Eosinophils % (auto) 4.3 % (0.0-7.0); Hematocrit 31.5 % (36.0-46.0); Lymphocytes # (auto) 1.6 10 ^3/uL (0.4-5.4); Lymphocytes % (auto) 16.9 % (10.0-50.0); Mean Corpuscular Hemoglobin 28.5 pg (28.0-32.0); Mean Corpuscular Hgb Conc. 32.1 g/dL (32.0-36.0); Mean Corpuscular Volume 88.7 fL (80.0-100.0); Neutrophils # (auto) 6.3 10 ^3/uL (1.6-8.6); Neutrophils % (auto) 66.5 % (37.0-80.0); Red Blood Cells 3.55 10^6/uL (4.0-5.20); White Blood Cell 9.5 10^3/uL (4.4-10.8)
[2023-02-01 04:23] LABS: INR 1.13 (0.9-1.15); Prothrombin Time 11.8 sec (9.3-11.8)
[2023-02-01 05:00] LABS: Alanine Aminotransferase 18 U/L (7-40); Albumin 3.3 g/dL (3.2-4.8); Alkaline Phosphatase 105 U/L (46-116); Anion Gap 6 (5-15); Aspartate Aminotransferase 30 U/L (13-40); Blood Urea Nitrogen 9 mg/dL (9-23); Calcium 9.1 mg/dL (8.7-10.4); Carbon Dioxide 33 mmol/L (20-30); Chloride 102 mmol/L (98-107); Glucose 93 mg/dL (74-106); Potassium 3.8 mmol/L (3.5-5.1); Sodium 141 mmol/L (136-145)
[2023-02-01 05:01] LABS: Bilirubin, Total 0.2 mg/dL (0.2-1.0); Total Protein 6.3 g/dL (5.7-8.2)
[2023-02-01] MEDS: MEROPENEM 1GM IVPB 100 ML IV SCH ×3 (06:00→21:57)
[2023-02-01] MEDS: fentaNYL Drip 2500mCg/250mlNS 250 ML IV SCH ×3 (06:00→23:00)
[2023-02-01] MEDS: BUMETANIDE INJECTION 12.5 MG in GIVE UN-DILUTED 0 ML IV SCH (06:26)
[2023-02-01 08:18] LABS: Base Excess 11.6 mmol/L (-2.0-2.0)
[2023-02-01] MEDS: FLUCONAZOLE 200MG/100ML 100 ML IV SCH ×2 (09:42→12:19)
[2023-02-01] MEDS: PANTOPRAZOLE 40 MG/10 ML VIAL INJ IV SCH ×2 (09:42→21:56)
[2023-02-01] MEDS: SODIUM CHLOR 0.9% PF (SALINE LOCK) 10ML VIAL/SYR IV SCH ×4 (09:42→21:56)
[2023-02-01] MEDS: POTASSIUM EFFERVESENT TAB 25 MEQ PO SCH ×2 (09:42→21:56)
[2023-02-01] MEDS: METOPROLOL TARTRATE 25 MG TAB PO SCH (10:00)
[2023-02-01 10:43] LABS: INR 1.11 (0.9-1.15); Prothrombin Time 11.6 sec (9.3-11.8)
[2023-02-01 14:22] LABS: Body Fluid Polymorphonuclear 3 % (0-25); Body Fluid Red Blood Cells 280 CUMM (0-2000); Body Fluid White Blood Cells 260 CUMM (0-200); Body Fluid pH 8
[2023-02-01] MEDS: HEPARIN DRIP/D5W 100UNITS/ML 250 ML IV SCH ×2 (14:26→19:12)
[2023-02-01] MEDS: METOCLOPRAMIDE HCL 5MG/ml INJ 2ml VIAL IV SCH ×2 (14:51→21:56)
[2023-02-01 18:04] LABS: INR 1.09 (0.9-1.15); Partial Thromboplastin Time 22.9 SEC (24.5-34.5); Prothrombin Time 11.4 sec (9.3-11.8)
[2023-02-01] MEDS ORDERED: HEPARIN SODIUM (PORCINE) 5000 UNITS/ML 1ML VIAL IV ONE (19:00)
[2023-02-01] MEDS: Jevity 1.2 Cal/Fiber 1 Liter GT SCH (20:00)
[2023-02-01] MEDS: NOREPINEPHRINE 8 MG/250ML KIT 250 ML IV SCH (20:30)
[2023-02-02] VITALS (106 sets, daily range): BP systolic 91–138; BP diastolic 51–82; PULSE 89–117; RESP 13–26; TEMP 97.9–100; O2SAT 94–99
[2023-02-02] MEDS: MIDAZOLAM DRIP 50 mg/50mL 50 ML IV SCH ×5 (00:12→22:51)
[2023-02-02] MEDS: PROPOFOL 100 ML IV SCH ×5 (00:15→18:49)
[2023-02-02] MEDS: ALBUTEROL MEDNEB 2.5 mg/3ml NEB NEB SCH ×4 (02:02→17:59)
[2023-02-02 02:19] LABS: INR 1.15 (0.9-1.15)
[2023-02-02 02:35] LABS: Partial Thromboplastin Time 124.1 SEC (24.5-34.5)
[2023-02-02 04:43] LABS: Hemoglobin 10.7 g/dL (12.2-16.2)
[2023-02-02 04:46] LABS: Basophils # (auto) 0.1 10 ^3/uL (0-0.2); Basophils % (auto) 1.3 % (0.0-2.0); Eosinophils # (auto) 0.4 10 ^3/uL (0-0.8); Eosinophils % (auto) 4.7 % (0.0-7.0); Hematocrit 33.6 % (36.0-46.0); Lymphocytes # (auto) 1.6 10 ^3/uL (0.4-5.4); Lymphocytes % (auto) 16.6 % (10.0-50.0); Mean Corpuscular Hemoglobin 27.6 pg (28.0-32.0); Mean Corpuscular Volume 86.4 fL (80.0-100.0); Monocytes # (auto) 1.1 10 ^3/uL (0-1.3); Monocytes % (auto) 11.2 % (0.0-12.0); Neutrophils # (auto) 6.3 10 ^3/uL (1.6-8.6); Neutrophils % (auto) 66.2 % (37.0-80.0); Nucleated Red Blood Cells % 0.2 %; Red Blood Cells 3.89 10^6/uL (4.0-5.20); Red Cell Distribution Width 15.5 % (11.8-14.3); White Blood Cell 9.5 10^3/uL (4.4-10.8)
[2023-02-02 05:10] LABS: Alanine Aminotransferase 18 U/L (7-40); Alkaline Phosphatase 110 U/L (46-116); Anion Gap 5 (5-15); BUN/Creatinine Ratio 13.6 (10.0-20.0); Blood Urea Nitrogen 9 mg/dL (9-23); Calcium 9.1 mg/dL (8.7-10.4); Carbon Dioxide 38 mmol/L (20-30); Chloride 95 mmol/L (98-107); Glucose 94 mg/dL (74-106); Potassium 3.6 mmol/L (3.5-5.1); Sodium 138 mmol/L (136-145)
[2023-02-02 05:11] LABS: Albumin 3.5 g/dL (3.2-4.8); Aspartate Aminotransferase 34 U/L (13-40); Bilirubin, Total 0.3 mg/dL (0.2-1.0); Total Protein 6.7 g/dL (5.7-8.2)
[2023-02-02] MEDS: SODIUM CHLOR 0.9% PF (SALINE LOCK) 10ML VIAL/SYR IV SCH ×5 (06:05→21:34)
[2023-02-02] MEDS: BUMETANIDE INJECTION 12.5 MG in GIVE UN-DILUTED 0 ML IV SCH (06:06)
[2023-02-02] MEDS: fentaNYL Drip 2500mCg/250mlNS 250 ML IV SCH ×3 (06:09→22:52)
[2023-02-02] MEDS: MEROPENEM 1GM IVPB 100 ML IV SCH ×3 (06:15→21:32)
[2023-02-02] MEDS: METOCLOPRAMIDE HCL 5MG/ml INJ 2ml VIAL IV SCH ×3 (06:15→21:33)
[2023-02-02 07:06] LABS: Rheumatoid Arthritis Factor 10.5 IU/mL (<14.0)
[2023-02-02 07:42] LABS: Base Excess 11.3 mmol/L (-2.0-2.0)
[2023-02-02] MEDS: HEPARIN DRIP/D5W 100UNITS/ML 250 ML IV SCH ×3 (09:32→19:00)
[2023-02-02] MEDS: FLUCONAZOLE 200MG/100ML 100 ML IV SCH ×2 (09:33→13:23)
[2023-02-02] MEDS: POTASSIUM EFFERVESENT TAB 25 MEQ PO SCH ×2 (09:59→21:33)
[2023-02-02] MEDS: PANTOPRAZOLE 40 MG/10 ML VIAL INJ IV SCH ×2 (09:59→21:33)
[2023-02-02 10:02] LABS: INR 1.17 (0.9-1.15); Partial Thromboplastin Time 56.7 SEC (24.5-34.5); Prothrombin Time 12.2 sec (9.3-11.8)
[2023-02-02 12:07] LABS: Protein, Body Fluid 3.4 g/dL (.)
[2023-02-02] MEDS ORDERED: methylPREDNISolone SOD SUCC 40 MG/ML VL IV ONE (13:45)
[2023-02-02 16:28] LABS: INR 1.17 (0.9-1.15); Partial Thromboplastin Time 63.9 SEC (24.5-34.5); Prothrombin Time 12.2 sec (9.3-11.8)
[2023-02-02] MEDS: BUMETANIDE 2.5mg/10ml (0.25 mg/ml) INJ IV SCH (18:05)
[2023-02-02] MEDS: NOREPINEPHRINE 8 MG/250ML KIT 250 ML IV SCH (20:30)
[2023-02-02] MEDS: methylPREDNISolone SOD SUCC 40 MG/ML VL IV SCH (21:33)
[2023-02-02 22:46] LABS: INR 1.12 (0.9-1.15); Prothrombin Time 11.7 sec (9.3-11.8)
[2023-02-02] MEDS: ARTIFICIAL TEARS 15ml EACHEYE PRN (22:51)
[2023-02-02 23:00] LABS: Partial Thromboplastin Time 91.1 SEC (24.5-34.5)
[2023-02-02 23:54] LABS: INR 1.12 (0.9-1.15); Prothrombin Time 11.7 sec (9.3-11.8)
[2023-02-03] VITALS (105 sets, daily range): BP systolic 86–201; BP diastolic 48–121; PULSE 78–113; RESP 11–19; TEMP 96.6–99.7; O2SAT 90–100
[2023-02-03 00:06] LABS: Partial Thromboplastin Time 89.4 SEC (24.5-34.5)
[2023-02-03] MEDS: ALBUTEROL MEDNEB 2.5 mg/3ml NEB NEB SCH ×4 (00:17→13:44)
[2023-02-03] MEDS ORDERED: HEPARIN DRIP/D5W 100UNITS/ML 250 ML IV SCH ×2 (03:45→10:00)
[2023-02-03] MEDS: PROPOFOL 100 ML IV SCH ×5 (03:54→21:48)
[2023-02-03] MEDS: MIDAZOLAM DRIP 50 mg/50mL 50 ML IV SCH ×4 (03:54→19:21)
[2023-02-03] MEDS: METOCLOPRAMIDE HCL 5MG/ml INJ 2ml VIAL IV SCH ×3 (05:37→21:26)
[2023-02-03] MEDS: BUMETANIDE 2.5mg/10ml (0.25 mg/ml) INJ IV SCH ×2 (05:37→17:54)
[2023-02-03] MEDS: SODIUM CHLOR 0.9% PF (SALINE LOCK) 10ML VIAL/SYR IV SCH ×5 (05:38→21:26)
[2023-02-03] MEDS: MEROPENEM 1GM IVPB 100 ML IV SCH ×3 (05:38→21:26)
[2023-02-03] MEDS: ARTIFICIAL TEARS 15ml EACHEYE PRN ×2 (05:44→13:19)
[2023-02-03] MEDS: IPRATROPIUM BROM 0.5 MG/2.5ML INH SOL NEB PRN ×3 (05:49→18:40)
[2023-02-03 06:44] LABS: Alanine Aminotransferase 16 U/L (7-40); Alkaline Phosphatase 96 U/L (46-116); Anion Gap 7 (5-15); Aspartate Aminotransferase 29 U/L (13-40); Blood Urea Nitrogen 12 mg/dL (9-23); Calcium 8.8 mg/dL (8.7-10.4); Carbon Dioxide 32 mmol/L (20-30); Chloride 95 mmol/L (98-107); Glucose 134 mg/dL (74-106); Potassium 3.6 mmol/L (3.5-5.1); Sodium 134 mmol/L (136-145)
[2023-02-03 06:45] LABS: Albumin 3.5 g/dL (3.2-4.8); Bilirubin, Total 0.2 mg/dL (0.2-1.0); INR 1.09 (0.9-1.15); Partial Thromboplastin Time 35.9 SEC (24.5-34.5); Prothrombin Time 11.4 sec (9.3-11.8); Total Protein 6.6 g/dL (5.7-8.2)
[2023-02-03 06:56] LABS: Basophils # (auto) 0 10 ^3/uL (0-0.2); Eosinophils # (auto) 0 10 ^3/uL (0-0.8); Monocytes # (auto) 0.1 10 ^3/uL (0-1.3); White Blood Cell 9.1 10^3/uL (4.4-10.8)
[2023-02-03 06:59] LABS: Basophils % (auto) 0.4 % (0.0-2.0); Hematocrit 31.5 % (36.0-46.0); Lymphocytes # (auto) 0.7 10 ^3/uL (0.4-5.4); Lymphocytes % (auto) 8.2 % (10.0-50.0); Mean Corpuscular Hemoglobin 28.2 pg (28.0-32.0); Mean Corpuscular Hgb Conc. 31.9 g/dL (32.0-36.0); Mean Corpuscular Volume 88.5 fL (80.0-100.0); Neutrophils # (auto) 8.2 10 ^3/uL (1.6-8.6); Neutrophils % (auto) 90.4 % (37.0-80.0); Nucleated Red Blood Cells % 0.1 %; Red Blood Cells 3.56 10^6/uL (4.0-5.20); Red Cell Distribution Width 15.4 % (11.8-14.3)
[2023-02-03 07:32] LABS: Base Excess 11.4 mmol/L (-2.0-2.0)
[2023-02-03] MEDS: fentaNYL Drip 2500mCg/250mlNS 250 ML IV SCH ×3 (07:47→23:30)
[2023-02-03] MEDS ORDERED: NALOXONE HCL 0.4 MG/ML VIAL ONE (08:25)
[2023-02-03] MEDS ORDERED: FLUMAZENIL 0.1 MG/ML INJ 10ML MDV IV ONE (08:25)
[2023-02-03] MEDS ORDERED: LIDOCAINE 2% JELLY 11ml (GLYDO) ONE (08:26)
[2023-02-03] MEDS ORDERED: EPINEPHrine HCL 1 MG/1 ML AMP ONE ×2 (08:26→09:16)
[2023-02-03] MEDS ORDERED: SODIUM CHLORIDE LOCK 0 ML ONE (08:26)
[2023-02-03] MEDS ORDERED: MIDAZOLAM HCL 5 MG/ML-1ML VIAL ONE (08:27)
[2023-02-03] MEDS ORDERED: fentaNYL CITRATE 100 MCG/2 ML VL ONE (08:27)
[2023-02-03] MEDS ORDERED: LIDOCAINE 2%HCL (LOCAL ANESTH.) INJ 20ML MDV ONE (09:16)
[2023-02-03] MEDS: PANTOPRAZOLE 40 MG/10 ML VIAL INJ IV SCH ×2 (09:27→21:26)
[2023-02-03] MEDS: POTASSIUM EFFERVESENT TAB 25 MEQ PO SCH ×2 (09:28→21:27)
[2023-02-03] MEDS: FLUCONAZOLE 200MG/100ML 100 ML IV SCH ×2 (09:28→10:39)
[2023-02-03] MEDS: methylPREDNISolone SOD SUCC 40 MG/ML VL IV SCH ×2 (09:28→21:27)
[2023-02-03] MEDS: ACETYLCYSTEINE 20%(200MG/ML) SOL 4ML NEB SCH (13:44)
[2023-02-03] MEDS: NOREPINEPHRINE 8 MG/250ML KIT 250 ML IV SCH (20:30)
[2023-02-03 20:33] LABS: INR 1.09 (0.9-1.15); Partial Thromboplastin Time 67.8 SEC (24.5-34.5); Prothrombin Time 11.4 sec (9.3-11.8)
[2023-02-04] VITALS (94 sets, daily range): BP systolic 125–176; BP diastolic 62–92; PULSE 75–107; RESP 13–18; TEMP 98.6–100.2; O2SAT 89–100
[2023-02-04] MEDS: MIDAZOLAM DRIP 50 mg/50mL 50 ML IV SCH ×2 (00:10→05:32)
[2023-02-04] MEDS: PROPOFOL 100 ML IV SCH ×4 (00:13→21:06)
[2023-02-04] MEDS: ALBUTEROL MEDNEB 2.5 mg/3ml NEB NEB SCH ×4 (00:38→18:28)
[2023-02-04] MEDS: IPRATROPIUM BROM 0.5 MG/2.5ML INH SOL NEB PRN ×5 (00:38→20:31)
[2023-02-04] MEDS: ACETYLCYSTEINE 20%(200MG/ML) SOL 4ML NEB SCH ×5 (00:38→18:28)
[2023-02-04 02:47] LABS: INR 1.09 (0.9-1.15); Prothrombin Time 11.4 sec (9.3-11.8)
[2023-02-04 02:56] LABS: Partial Thromboplastin Time 78.2 SEC (24.5-34.5)
[2023-02-04] MEDS ORDERED: HEPARIN DRIP/D5W 100UNITS/ML 250 ML IV SCH (04:00)
[2023-02-04 04:26] LABS: Eosinophils # (auto) 0 10 ^3/uL (0-0.8); Hemoglobin 9.2 g/dL (12.2-16.2); Monocytes # (auto) 0.4 10 ^3/uL (0-1.3); Nucleated Red Blood Cells % 0.1 %; White Blood Cell 9.6 10^3/uL (4.4-10.8)
[2023-02-04 04:28] LABS: Basophils # (auto) 0.1 10 ^3/uL (0-0.2); Basophils % (auto) 0.8 % (0.0-2.0); Eosinophils % (auto) 0.1 % (0.0-7.0); Hematocrit 28.5 % (36.0-46.0); Lymphocytes # (auto) 0.7 10 ^3/uL (0.4-5.4); Lymphocytes % (auto) 7.3 % (10.0-50.0); Mean Corpuscular Hemoglobin 27.9 pg (28.0-32.0); Mean Corpuscular Hgb Conc. 32.4 g/dL (32.0-36.0); Mean Corpuscular Volume 86.2 fL (80.0-100.0); Monocytes % (auto) 4.4 % (0.0-12.0); Neutrophils # (auto) 8.4 10 ^3/uL (1.6-8.6); Neutrophils % (auto) 87.4 % (37.0-80.0); Red Blood Cells 3.31 10^6/uL (4.0-5.20); Red Cell Distribution Width 15.4 % (11.8-14.3)
[2023-02-04 04:41] LABS: Alanine Aminotransferase 20 U/L (7-40); Alkaline Phosphatase 87 U/L (46-116); Anion Gap 7 (5-15); BUN/Creatinine Ratio 27.5 (10.0-20.0); Blood Urea Nitrogen 14 mg/dL (9-23); Calcium 8.6 mg/dL (8.7-10.4); Carbon Dioxide 34 mmol/L (20-30); Chloride 97 mmol/L (98-107); Glucose 124 mg/dL (74-106); Potassium 3.4 mmol/L (3.5-5.1); Sodium 138 mmol/L (136-145)
[2023-02-04 04:42] LABS: Albumin 3.4 g/dL (3.2-4.8); Aspartate Aminotransferase 32 U/L (13-40); Bilirubin, Total 0.2 mg/dL (0.2-1.0); Total Protein 6.4 g/dL (5.7-8.2)
[2023-02-04] MEDS: METOCLOPRAMIDE HCL 5MG/ml INJ 2ml VIAL IV SCH ×3 (05:31→22:30)
[2023-02-04] MEDS: BUMETANIDE 2.5mg/10ml (0.25 mg/ml) INJ IV SCH (05:32)
[2023-02-04] MEDS: MEROPENEM 1GM IVPB 100 ML IV SCH ×2 (05:40→14:13)
[2023-02-04] MEDS: SODIUM CHLOR 0.9% PF (SALINE LOCK) 10ML VIAL/SYR IV SCH ×5 (06:45→22:37)
[2023-02-04] MEDS ORDERED: POTASSIUM EFFERVESENT TAB 25 MEQ PO ONE (07:30)
[2023-02-04 08:33] LABS: Base Excess 9.2 mmol/L (-2.0-2.0)
[2023-02-04] MEDS: POTASSIUM EFFERVESENT TAB 25 MEQ PO SCH (09:33)
[2023-02-04] MEDS: methylPREDNISolone SOD SUCC 40 MG/ML VL IV SCH ×2 (09:34→22:30)
[2023-02-04] MEDS: PANTOPRAZOLE 40 MG/10 ML VIAL INJ IV SCH ×2 (09:34→22:40)
[2023-02-04] MEDS: FLUCONAZOLE 200MG/100ML 100 ML IV SCH ×2 (11:05→12:33)
[2023-02-04] MEDS: fentaNYL Drip 2500mCg/250mlNS 250 ML IV SCH (11:10)
[2023-02-04] MEDS: LABETALOL HCL 5 MG/ML 4ML SYRINGE IV PRN (11:19)
[2023-02-04] MEDS ORDERED: METOPROLOL TARTRATE 25 MG TAB PO ONE (12:15)
[2023-02-04] MEDS ORDERED: VANCOMYCIN PER PHARMACY 0 MG IV SCH (12:15)
[2023-02-04] MEDS ORDERED: VANCOMYCIN 1GM/250ML 250 ML IV ONE (13:00)
[2023-02-04] MEDS: CIPROFLOXACIN 0.3%OPTH(EYE) SOL 5ML LEFTEYE SCH ×3 (14:13→22:42)
[2023-02-04 15:00] LABS: INR 1.11 (0.9-1.15); Partial Thromboplastin Time 44.9 SEC (24.5-34.5); Prothrombin Time 11.6 sec (9.3-11.8)
[2023-02-04] MEDS: HEPARIN DRIP/D5W 100UNITS/ML 250 ML IV SCH ×3 (17:03→22:05)
[2023-02-04] MEDS: NOREPINEPHRINE 8 MG/250ML KIT 250 ML IV SCH (19:41)
[2023-02-04] MEDS: ALBUTEROL MEDNEB 2.5 mg/3ml NEB NEB PRN (20:31)
[2023-02-04 21:58] LABS: INR 1.13 (0.9-1.15); Partial Thromboplastin Time 45.7 SEC (24.5-34.5); Prothrombin Time 11.8 sec (9.3-11.8)
[2023-02-04] MEDS: METOPROLOL TARTRATE 25 MG TAB PO SCH (22:31)
[2023-02-04] MEDS: VANCOMYCIN 1GM/250ML 250 ML IV SCH (22:31)
[2023-02-05] VITALS (78 sets, daily range): BP systolic 108–196; BP diastolic 59–107; PULSE 78–126; RESP 12–24; TEMP 99–101.1; O2SAT 94–100
[2023-02-05] MEDS: MEROPENEM 1GM IVPB 100 ML IV SCH ×4 (00:03→21:07)
[2023-02-05] MEDS: ACETYLCYSTEINE 20%(200MG/ML) SOL 4ML NEB SCH ×4 (00:25→18:19)
[2023-02-05] MEDS: ALBUTEROL MEDNEB 2.5 mg/3ml NEB NEB SCH ×4 (00:25→18:20)
[2023-02-05] MEDS: PROPOFOL 100 ML IV SCH ×6 (00:39→20:45)
[2023-02-05] MEDS: fentaNYL Drip 2500mCg/250mlNS 250 ML IV SCH ×3 (00:47→19:02)
[2023-02-05] MEDS: LABETALOL HCL 5 MG/ML 4ML SYRINGE IV PRN ×2 (01:13→05:35)
[2023-02-05] MEDS: MIDAZOLAM DRIP 50 mg/50mL 50 ML IV SCH ×2 (02:28→14:01)
[2023-02-05] MEDS: CIPROFLOXACIN 0.3%OPTH(EYE) SOL 5ML LEFTEYE SCH ×6 (03:00→21:15)
[2023-02-05] MEDS: hydrALAZINE HCL 20 MG/ML VL IV PRN (03:26)
[2023-02-05 04:35] LABS: Basophils # (auto) 0 10 ^3/uL (0-0.2); Eosinophils # (auto) 0 10 ^3/uL (0-0.8); Hemoglobin 10.7 g/dL (12.2-16.2)
[2023-02-05 04:38] LABS: Basophils % (auto) 0.4 % (0.0-2.0); Eosinophils % (auto) 0.1 % (0.0-7.0); Lymphocytes # (auto) 0.8 10 ^3/uL (0.4-5.4); Lymphocytes % (auto) 6.4 % (10.0-50.0); Mean Corpuscular Hemoglobin 27.6 pg (28.0-32.0); Mean Corpuscular Hgb Conc. 31.6 g/dL (32.0-36.0); Mean Corpuscular Volume 87.3 fL (80.0-100.0); Monocytes # (auto) 0.4 10 ^3/uL (0-1.3); Monocytes % (auto) 3.3 % (0.0-12.0); Neutrophils # (auto) 11.6 10 ^3/uL (1.6-8.6); Neutrophils % (auto) 89.8 % (37.0-80.0); Red Blood Cells 3.89 10^6/uL (4.0-5.20); Red Cell Distribution Width 15.3 % (11.8-14.3); White Blood Cell 12.9 10^3/uL (4.4-10.8)
[2023-02-05 04:52] LABS: INR 1.14 (0.9-1.15); Partial Thromboplastin Time 66.6 SEC (24.5-34.5); Prothrombin Time 11.9 sec (9.3-11.8)
[2023-02-05] MEDS: ACETAMINOPHEN 325 MG TAB PO PRN ×2 (04:52→13:07)
[2023-02-05 05:02] LABS: Alanine Aminotransferase 20 U/L (7-40); Albumin 3.9 g/dL (3.2-4.8); Alkaline Phosphatase 97 U/L (46-116)
[2023-02-05 05:03] LABS: Anion Gap 8 (5-15); Aspartate Aminotransferase 34 U/L (13-40); Bilirubin, Total 0.3 mg/dL (0.2-1.0); Blood Urea Nitrogen 13 mg/dL (9-23); Calcium 8.8 mg/dL (8.7-10.4); Carbon Dioxide 30 mmol/L (20-30); Chloride 99 mmol/L (98-107); Glucose 128 mg/dL (74-106); Potassium 3.9 mmol/L (3.5-5.1); Sodium 137 mmol/L (136-145); Total Protein 7.6 g/dL (5.7-8.2)
[2023-02-05] MEDS: SODIUM CHLOR 0.9% PF (SALINE LOCK) 10ML VIAL/SYR IV SCH ×5 (05:25→21:08)
[2023-02-05] MEDS: METOCLOPRAMIDE HCL 5MG/ml INJ 2ml VIAL IV SCH ×3 (05:25→21:07)
[2023-02-05] MEDS: IPRATROPIUM BROM 0.5 MG/2.5ML INH SOL NEB PRN ×3 (06:21→18:19)
[2023-02-05] MEDS: BUMETANIDE 2.5mg/10ml (0.25 mg/ml) INJ IV SCH (08:15)
[2023-02-05] MEDS: HEPARIN DRIP/D5W 100UNITS/ML 250 ML IV SCH (08:21)
[2023-02-05 09:22] LABS: Base Excess 7.3 mmol/L (-2.0-2.0)
[2023-02-05] MEDS: POTASSIUM EFFERVESENT TAB 25 MEQ PO SCH (09:45)
[2023-02-05] MEDS: methylPREDNISolone SOD SUCC 40 MG/ML VL IV SCH ×2 (09:47→21:07)
[2023-02-05] MEDS: PANTOPRAZOLE 40 MG/10 ML VIAL INJ IV SCH ×2 (09:47→21:08)
[2023-02-05] MEDS: METOPROLOL TARTRATE 25 MG TAB PO SCH ×2 (09:48→21:07)
[2023-02-05] MEDS: VANCOMYCIN 1GM/250ML 250 ML IV SCH ×2 (09:48→19:00)
[2023-02-05] MEDS ORDERED: HEPARIN DRIP/D5W 100UNITS/ML 250 ML IV SCH ×2 (11:00→21:45)
[2023-02-05] MEDS: FLUCONAZOLE 200MG/100ML 100 ML IV SCH ×2 (11:19→13:24)
[2023-02-05 19:39] LABS: INR 1.19 (0.9-1.15); Prothrombin Time 12.4 sec (9.3-11.8)
[2023-02-05 19:42] LABS: Partial Thromboplastin Time 111.3 SEC (24.5-34.5)
[2023-02-05] MEDS: NOREPINEPHRINE 8 MG/250ML KIT 250 ML IV SCH (20:19)
[2023-02-06] VITALS (70 sets, daily range): BP systolic 102–184; BP diastolic 53–106; PULSE 67–125; RESP 9–23; TEMP 96.8–100; O2SAT 93–100
[2023-02-06] MEDS: IPRATROPIUM BROM 0.5 MG/2.5ML INH SOL NEB PRN ×2 (00:12→19:02)
[2023-02-06] MEDS: ACETYLCYSTEINE 20%(200MG/ML) SOL 4ML NEB SCH ×4 (00:12→19:02)
[2023-02-06] MEDS: MIDAZOLAM DRIP 50 mg/50mL 50 ML IV SCH ×4 (00:52→23:32)
[2023-02-06] MEDS: PROPOFOL 100 ML IV SCH ×5 (01:51→21:26)
[2023-02-06] MEDS: Jevity 1.2 Cal/Fiber 1 Liter GT SCH (02:14)
[2023-02-06] MEDS: CIPROFLOXACIN 0.3%OPTH(EYE) SOL 5ML LEFTEYE SCH ×6 (02:25→21:34)
[2023-02-06] MEDS: fentaNYL Drip 2500mCg/250mlNS 250 ML IV SCH ×3 (02:25→18:20)
[2023-02-06 03:00] LABS: Basophils # (auto) 0 10 ^3/uL (0-0.2); Basophils % (auto) 0.2 % (0.0-2.0); Monocytes # (auto) 0.4 10 ^3/uL (0-1.3)
[2023-02-06 03:02] LABS: Eosinophils # (auto) 0.1 10 ^3/uL (0-0.8); Eosinophils % (auto) 0.4 % (0.0-7.0); Hematocrit 32.6 % (36.0-46.0); Hemoglobin 10.8 g/dL (12.2-16.2); Lymphocytes % (auto) 7.7 % (10.0-50.0); Mean Corpuscular Hemoglobin 28.8 pg (28.0-32.0); Mean Corpuscular Hgb Conc. 33.2 g/dL (32.0-36.0); Mean Corpuscular Volume 86.6 fL (80.0-100.0); Monocytes % (auto) 3.2 % (0.0-12.0); Neutrophils # (auto) 11.7 10 ^3/uL (1.6-8.6); Neutrophils % (auto) 88.5 % (37.0-80.0); Nucleated Red Blood Cells % 0.1 %; Red Blood Cells 3.76 10^6/uL (4.0-5.20); Red Cell Distribution Width 15.6 % (11.8-14.3); White Blood Cell 13.2 10^3/uL (4.4-10.8)
[2023-02-06 03:20] LABS: Alanine Aminotransferase 23 U/L (7-40); Albumin 3.8 g/dL (3.2-4.8); Alkaline Phosphatase 91 U/L (46-116); Anion Gap 6 (5-15); Aspartate Aminotransferase 37 U/L (13-40); BUN/Creatinine Ratio 25.5 (10.0-20.0); Bilirubin, Total 0.4 mg/dL (0.2-1.0); Blood Urea Nitrogen 12 mg/dL (9-23); Calcium 8.6 mg/dL (8.7-10.4); Carbon Dioxide 30 mmol/L (20-30); Chloride 102 mmol/L (98-107); Glucose 129 mg/dL (74-106); Potassium 4.2 mmol/L (3.5-5.1); Sodium 138 mmol/L (136-145); Total Protein 6.7 g/dL (5.7-8.2)
[2023-02-06] MEDS ORDERED: HEPARIN SODIUM (PORCINE) 5000 UNITS/ML 1ML VIAL IV ONE (03:45)
[2023-02-06] MEDS ORDERED: HEPARIN DRIP/D5W 100UNITS/ML 250 ML IV SCH ×3 (04:00→17:30)
[2023-02-06] MEDS: VANCOMYCIN 1GM/250ML 250 ML IV SCH ×2 (04:55→18:57)
[2023-02-06] MEDS: METOCLOPRAMIDE HCL 5MG/ml INJ 2ml VIAL IV SCH ×3 (05:05→21:33)
[2023-02-06] MEDS: SODIUM CHLOR 0.9% PF (SALINE LOCK) 10ML VIAL/SYR IV SCH ×5 (05:05→21:34)
[2023-02-06] MEDS: ALBUTEROL MEDNEB 2.5 mg/3ml NEB NEB SCH ×3 (06:38→19:02)
[2023-02-06] MEDS: hydrALAZINE HCL 20 MG/ML VL IV PRN ×2 (09:20→23:36)
[2023-02-06] MEDS: BUMETANIDE 2.5mg/10ml (0.25 mg/ml) INJ IV SCH (09:39)
[2023-02-06] MEDS: FLUCONAZOLE 200MG/100ML 100 ML IV SCH ×2 (09:40→11:25)
[2023-02-06] MEDS: PANTOPRAZOLE 40 MG/10 ML VIAL INJ IV SCH ×2 (09:42→21:32)
[2023-02-06] MEDS: methylPREDNISolone SOD SUCC 40 MG/ML VL IV SCH ×2 (09:43→21:32)
[2023-02-06] MEDS: POTASSIUM EFFERVESENT TAB 25 MEQ PO SCH (09:45)
[2023-02-06] MEDS: METOPROLOL TARTRATE 25 MG TAB PO SCH ×2 (09:46→21:32)
[2023-02-06] MEDS: NOREPINEPHRINE 8 MG/250ML KIT 250 ML IV SCH (20:30)
[2023-02-07] VITALS (109 sets, daily range): BP systolic 108–207; BP diastolic 54–117; PULSE 77–126; RESP 12–27; TEMP 98.6–101.3; O2SAT 92–100
[2023-02-07] MEDS: ACETYLCYSTEINE 20%(200MG/ML) SOL 4ML NEB SCH ×3 (00:35→19:09)
[2023-02-07] MEDS: ALBUTEROL MEDNEB 2.5 mg/3ml NEB NEB SCH ×3 (00:35→19:10)
[2023-02-07] MEDS: fentaNYL Drip 2500mCg/250mlNS 250 ML IV SCH ×2 (00:57→01:55)
[2023-02-07] MEDS: CIPROFLOXACIN 0.3%OPTH(EYE) SOL 5ML LEFTEYE SCH ×6 (02:11→21:13)
[2023-02-07] MEDS: LABETALOL HCL 5 MG/ML 4ML SYRINGE IV PRN ×5 (02:22→20:07)
[2023-02-07] MEDS: PROPOFOL 100 ML IV SCH (02:58)
[2023-02-07 05:24] LABS: Basophils # (auto) 0 10 ^3/uL (0-0.2); Eosinophils # (auto) 0 10 ^3/uL (0-0.8); Hemoglobin 9.2 g/dL (12.2-16.2); Lymphocytes % (auto) 10.9 % (10.0-50.0); Monocytes # (auto) 0.7 10 ^3/uL (0-1.3); Red Cell Distribution Width 15.4 % (11.8-14.3)
[2023-02-07 05:26] LABS: Eosinophils % (auto) 0.3 % (0.0-7.0); Hematocrit 28.7 % (36.0-46.0); Lymphocytes # (auto) 1.2 10 ^3/uL (0.4-5.4); Mean Corpuscular Hemoglobin 27.5 pg (28.0-32.0); Mean Corpuscular Hgb Conc. 31.9 g/dL (32.0-36.0); Mean Corpuscular Volume 86.3 fL (80.0-100.0); Monocytes % (auto) 6.2 % (0.0-12.0); Neutrophils # (auto) 9.4 10 ^3/uL (1.6-8.6); Neutrophils % (auto) 82.6 % (37.0-80.0); Nucleated Red Blood Cells % 0.1 %; Red Blood Cells 3.33 10^6/uL (4.0-5.20); White Blood Cell 11.4 10^3/uL (4.4-10.8)
[2023-02-07 05:33] LABS: Anion Gap 4 (5-15); Carbon Dioxide 29 mmol/L (20-30); Chloride 106 mmol/L (98-107); Potassium 4.4 mmol/L (3.5-5.1); Sodium 139 mmol/L (136-145)
[2023-02-07 05:34] LABS: Calcium 8.5 mg/dL (8.7-10.4)
[2023-02-07 05:39] LABS: BUN/Creatinine Ratio 26.1 (10.0-20.0); Blood Urea Nitrogen 12 mg/dL (9-23); Glucose 118 mg/dL (74-106)
[2023-02-07 05:42] LABS: INR 1.17 (0.9-1.15); Partial Thromboplastin Time 44.2 SEC (24.5-34.5); Prothrombin Time 12.2 sec (9.3-11.8)
[2023-02-07] MEDS: METOCLOPRAMIDE HCL 5MG/ml INJ 2ml VIAL IV SCH ×2 (06:13→14:50)
[2023-02-07] MEDS: SODIUM CHLOR 0.9% PF (SALINE LOCK) 10ML VIAL/SYR IV SCH ×5 (06:13→21:13)
[2023-02-07] MEDS ORDERED: HEPARIN DRIP/D5W 100UNITS/ML 250 ML IV SCH ×2 (06:30→12:30)
[2023-02-07] MEDS: IPRATROPIUM BROM 0.5 MG/2.5ML INH SOL NEB PRN ×2 (07:08→19:09)
[2023-02-07] MEDS: ACETAMINOPHEN 325 MG TAB PO PRN (08:17)
[2023-02-07] MEDS: VANCOMYCIN 1GM/250ML 250 ML IV SCH ×2 (09:05→23:32)
[2023-02-07] MEDS: hydrALAZINE HCL 20 MG/ML VL IV PRN ×3 (09:46→22:53)
[2023-02-07] MEDS: PANTOPRAZOLE 40 MG/10 ML VIAL INJ IV SCH ×2 (09:47→21:12)
[2023-02-07] MEDS: BUMETANIDE 2.5mg/10ml (0.25 mg/ml) INJ IV SCH (09:48)
[2023-02-07] MEDS: methylPREDNISolone SOD SUCC 40 MG/ML VL IV SCH ×2 (09:49→21:12)
[2023-02-07] MEDS: FLUCONAZOLE 200MG/100ML 100 ML IV SCH ×3 (09:50→11:24)
[2023-02-07] MEDS: POTASSIUM EFFERVESENT TAB 25 MEQ PO SCH (09:50)
[2023-02-07] MEDS: METOPROLOL TARTRATE 25 MG TAB PO SCH (09:51)
[2023-02-07 09:54] LABS: Base Excess 2.2 mmol/L (-2.0-2.0)
[2023-02-07 11:40] LABS: White Blood Cell 21.1 10^3/uL (4.4-10.8)
[2023-02-07 11:42] LABS: Hematocrit 33.8 % (36.0-46.0); Hemoglobin 10.8 g/dL (12.2-16.2); Mean Corpuscular Hemoglobin 27.4 pg (28.0-32.0); Mean Corpuscular Hgb Conc. 31.9 g/dL (32.0-36.0); Mean Corpuscular Volume 85.8 fL (80.0-100.0); Red Blood Cells 3.94 10^6/uL (4.0-5.20); Red Cell Distribution Width 15.8 % (11.8-14.3)
[2023-02-07 11:51] LABS: INR 1.19 (0.9-1.15); Partial Thromboplastin Time 47.7 SEC (24.5-34.5); Prothrombin Time 12.4 sec (9.3-11.8)
[2023-02-07 11:59] LABS: Basophils % (manual) 0 (0.0-2.0); Blast Cells 0; Eosinophils % (manual) 0 (0-7); Metamyelocytes % 0; Myelocytes % 0; Promyelocytes % 0; Reactive Lymphocytes 0
[2023-02-07] MEDS ORDERED: MICAFUNGIN SODIUM 100 MG in SODIUM CHL 0.9% 100 ML IV ONE ×2 (12:15→16:00)
[2023-02-07] MEDS ORDERED: MEROPENEM 1GM IVPB 100 ML IV ONE (12:15)
[2023-02-07] MEDS ORDERED: BUMETANIDE 2.5mg/10ml (0.25 mg/ml) INJ IV ONE (12:15)
[2023-02-07 12:47] LABS: Base Excess 4.8 mmol/L (-2.0-2.0)
[2023-02-07] MEDS ORDERED: MEROPENEM 1GM IVPB 100 ML IV SCH (14:00)
[2023-02-07 14:36] LABS: Band Neutrophils % (manual) 1; Lymphocytes % (manual) 11 (10.0-50.0); Monocytes % (manual) 11 (0-12)
[2023-02-07 14:38] LABS: Platelet Estimate Marked
[2023-02-07] MEDS ORDERED: METOPROLOL TARTRATE 25 MG TAB PO ONE (16:00)
[2023-02-07] MEDS ORDERED: amLODIPine BESYLATE 5 MG TAB PO ONE (16:00)
[2023-02-07] MEDS: HYDROmorphone HCL 2 MG/ML VL/or syr IV PRN ×2 (16:39→22:31)
[2023-02-07 19:39] LABS: INR 1.25 (0.9-1.15); Prothrombin Time 12.9 sec (9.3-11.8)
[2023-02-07 19:40] LABS: Partial Thromboplastin Time 79.2 SEC (24.5-34.5)
[2023-02-07] MEDS: MEROPENEM 1GM IVPB 100 ML IV SCH (20:00)
[2023-02-07] MEDS: NOREPINEPHRINE 8 MG/250ML KIT 250 ML IV SCH (20:30)
[2023-02-07] MEDS: HEPARIN DRIP/D5W 100UNITS/ML 250 ML IV SCH (20:31)
[2023-02-07] MEDS: METOPROLOL TARTRATE 50 MG TAB PO SCH (21:12)
[2023-02-08] VITALS (56 sets, daily range): BP systolic 136–193; BP diastolic 67–95; PULSE 97–120; RESP 12–27; TEMP 96.8–100; O2SAT 93–98
[2023-02-08] MEDS: LABETALOL HCL 5 MG/ML 4ML SYRINGE IV PRN ×3 (00:06→12:03)
[2023-02-08] MEDS: ALBUTEROL MEDNEB 2.5 mg/3ml NEB NEB SCH ×4 (00:46→18:30)
[2023-02-08] MEDS: IPRATROPIUM BROM 0.5 MG/2.5ML INH SOL NEB PRN (00:46)
[2023-02-08] MEDS: ACETYLCYSTEINE 20%(200MG/ML) SOL 4ML NEB SCH ×4 (00:46→18:30)
[2023-02-08] MEDS ORDERED: dilTIAZem 25 MG/5 ML VIAL IV ONE (01:30)
[2023-02-08] MEDS: HEPARIN DRIP/D5W 100UNITS/ML 250 ML IV SCH ×2 (01:57→16:00)
[2023-02-08] MEDS: CIPROFLOXACIN 0.3%OPTH(EYE) SOL 5ML LEFTEYE SCH ×5 (01:59→22:24)
[2023-02-08 02:40] LABS: Basophils # (auto) 0.1 10 ^3/uL (0-0.2); Eosinophils # (auto) 0 10 ^3/uL (0-0.8); Eosinophils % (auto) 0.1 % (0.0-7.0); Hemoglobin 11.3 g/dL (12.2-16.2)
[2023-02-08 02:41] LABS: Basophils % (auto) 0.3 % (0.0-2.0); Hematocrit 35.6 % (36.0-46.0); Lymphocytes # (auto) 1.1 10 ^3/uL (0.4-5.4); Lymphocytes % (auto) 5.3 % (10.0-50.0); Mean Corpuscular Hemoglobin 27.3 pg (28.0-32.0); Mean Corpuscular Hgb Conc. 31.8 g/dL (32.0-36.0); Monocytes # (auto) 1.1 10 ^3/uL (0-1.3); Neutrophils # (auto) 19.5 10 ^3/uL (1.6-8.6); Neutrophils % (auto) 89.3 % (37.0-80.0); Red Blood Cells 4.14 10^6/uL (4.0-5.20); Red Cell Distribution Width 15.5 % (11.8-14.3); White Blood Cell 21.8 10^3/uL (4.4-10.8)
[2023-02-08 02:54] LABS: Alanine Aminotransferase 24 U/L (7-40); Albumin 3.9 g/dL (3.2-4.8); Alkaline Phosphatase 100 U/L (46-116); Anion Gap 10 (5-15); Aspartate Aminotransferase 23 U/L (13-40); BUN/Creatinine Ratio 23.1 (10.0-20.0); Bilirubin, Total 0.7 mg/dL (0.2-1.0); Blood Urea Nitrogen 12 mg/dL (9-23); Calcium 8.9 mg/dL (8.7-10.4); Carbon Dioxide 25 mmol/L (20-30); Chloride 102 mmol/L (98-107); Glucose 121 mg/dL (74-106); Potassium 3.4 mmol/L (3.5-5.1); Sodium 137 mmol/L (136-145); Total Protein 6.9 g/dL (5.7-8.2)
[2023-02-08 03:05] LABS: INR 1.27 (0.9-1.15); Prothrombin Time 13.1 sec (9.3-11.8)
[2023-02-08 03:15] LABS: Partial Thromboplastin Time 74.6 SEC (24.5-34.5)
[2023-02-08] MEDS: MEROPENEM 1GM IVPB 100 ML IV SCH ×3 (04:03→19:33)
[2023-02-08] MEDS: SODIUM CHLOR 0.9% PF (SALINE LOCK) 10ML VIAL/SYR IV SCH ×5 (05:19→22:23)
[2023-02-08] MEDS: hydrALAZINE HCL 20 MG/ML VL IV PRN ×3 (05:19→22:24)
[2023-02-08] MEDS ORDERED: POTASSIUM EFFERVESENT TAB 25 MEQ PO ONE (08:30)
[2023-02-08 09:02] LABS: Basophils # (auto) 0 10 ^3/uL (0-0.2); Eosinophils # (auto) 0 10 ^3/uL (0-0.8); Eosinophils % (auto) 0.1 % (0.0-7.0); Nucleated Red Blood Cells % 0.1 %
[2023-02-08 09:06] LABS: Basophils % (auto) 0.2 % (0.0-2.0); Hematocrit 35.2 % (36.0-46.0); Hemoglobin 11.2 g/dL (12.2-16.2); Lymphocytes # (auto) 1.8 10 ^3/uL (0.4-5.4); Lymphocytes % (auto) 9.3 % (10.0-50.0); Mean Corpuscular Hemoglobin 27.6 pg (28.0-32.0); Mean Corpuscular Hgb Conc. 31.8 g/dL (32.0-36.0); Mean Corpuscular Volume 86.9 fL (80.0-100.0); Monocytes # (auto) 2.3 10 ^3/uL (0-1.3); Monocytes % (auto) 12.3 % (0.0-12.0); Neutrophils # (auto) 14.8 10 ^3/uL (1.6-8.6); Neutrophils % (auto) 78.1 % (37.0-80.0); Red Blood Cells 4.06 10^6/uL (4.0-5.20); Red Cell Distribution Width 15.6 % (11.8-14.3); White Blood Cell 18.9 10^3/uL (4.4-10.8)
[2023-02-08 09:17] LABS: INR 1.29 (0.9-1.15); Partial Thromboplastin Time 57.6 SEC (24.5-34.5); Prothrombin Time 13.3 sec (9.3-11.8)
[2023-02-08] MEDS ORDERED: ONDANSETRON HCL 4 MG/2 ML VIAL ONE (09:50)
[2023-02-08] MEDS: PANTOPRAZOLE 40 MG/10 ML VIAL INJ IV SCH ×2 (09:57→22:24)
[2023-02-08] MEDS: BUMETANIDE 2.5mg/10ml (0.25 mg/ml) INJ IV SCH (09:57)
[2023-02-08] MEDS: methylPREDNISolone SOD SUCC 40 MG/ML VL IV SCH ×2 (09:58→22:25)
[2023-02-08] MEDS: POTASSIUM EFFERVESENT TAB 25 MEQ PO SCH (09:58)
[2023-02-08] MEDS: amLODIPine BESYLATE 5 MG TAB PO SCH (09:59)
[2023-02-08] MEDS: METOPROLOL TARTRATE 50 MG TAB PO SCH ×2 (09:59→22:24)
[2023-02-08] MEDS: MICAFUNGIN SODIUM 100 MG in SODIUM CHL 0.9% 100 ML IV SCH (10:00)
[2023-02-08] MEDS: ONDANSETRON HCL 4 MG/2 ML VIAL IV PRN (10:11)
[2023-02-08] MEDS: VANCOMYCIN 1GM/250ML 250 ML IV SCH (13:09)
[2023-02-08] MEDS ORDERED: LISINOPRIL 10 MG TAB PO ONE (14:15)
[2023-02-08] MEDS: Jevity 1.2 Cal/Fiber 1 Liter GT SCH (14:42)
[2023-02-08 14:49] LABS: INR 1.31 (0.9-1.15); Prothrombin Time 13.5 sec (9.3-11.8)
[2023-02-08] MEDS: MIDAZOLAM DRIP 50 mg/50mL 50 ML IV SCH (20:30)
[2023-02-08] MEDS: LACTULOSE 20Gm/30ML SOLN PO SCH (22:24)
[2023-02-08 23:01] LABS: INR 1.26 (0.9-1.15)
[2023-02-09] VITALS (61 sets, daily range): BP systolic 137–193; BP diastolic 71–102; PULSE 95–126; RESP 16–36; TEMP 99.3–100.9; O2SAT 92–99
[2023-02-09] MEDS: ALBUTEROL MEDNEB 2.5 mg/3ml NEB NEB SCH ×5 (00:17→23:29)
[2023-02-09] MEDS: ACETYLCYSTEINE 20%(200MG/ML) SOL 4ML NEB SCH ×5 (00:18→23:29)
[2023-02-09] MEDS: CIPROFLOXACIN 0.3%OPTH(EYE) SOL 5ML LEFTEYE SCH ×6 (02:00→20:14)
[2023-02-09] MEDS: LABETALOL HCL 5 MG/ML 4ML SYRINGE IV PRN ×2 (02:18→22:02)
[2023-02-09] MEDS: VANCOMYCIN 1GM/250ML 250 ML IV SCH ×2 (02:19→17:17)
[2023-02-09] MEDS: HEPARIN DRIP/D5W 100UNITS/ML 250 ML IV SCH (02:27)
[2023-02-09 04:37] LABS: Eosinophils # (auto) 0 10 ^3/uL (0-0.8); Hemoglobin 11.2 g/dL (12.2-16.2)
[2023-02-09] MEDS: MEROPENEM 1GM IVPB 100 ML IV SCH ×3 (04:38→20:13)
[2023-02-09 04:49] LABS: INR 1.26 (0.9-1.15); Partial Thromboplastin Time 54.7 SEC (24.5-34.5)
[2023-02-09 05:12] LABS: Alanine Aminotransferase 151 U/L (7-40); Albumin 3.8 g/dL (3.2-4.8); Alkaline Phosphatase 100 U/L (46-116); Anion Gap 9 (5-15); Aspartate Aminotransferase 205 U/L (13-40); BUN/Creatinine Ratio 24.6 (10.0-20.0); Bilirubin, Total 0.9 mg/dL (0.2-1.0); Blood Urea Nitrogen 15 mg/dL (9-23); Calcium 8.6 mg/dL (8.5-10.1); Carbon Dioxide 24 mmol/L (20-30); Chloride 104 mmol/L (98-107); Glucose 172 mg/dL (74-106); Sodium 137 mmol/L (136-145); Total Protein 6.4 g/dL (5.7-8.2)
[2023-02-09 05:16] LABS: Basophils # (auto) 0.1 10 ^3/uL (0-0.2); Basophils % (auto) 0.5 % (0.0-2.0); Lymphocytes % (auto) 5.2 % (10.0-50.0); Mean Corpuscular Hemoglobin 27.2 pg (28.0-32.0); Mean Corpuscular Volume 87.8 fL (80.0-100.0); Monocytes % (auto) 5.2 % (0.0-12.0); Neutrophils # (auto) 16.3 10 ^3/uL (1.6-8.6); Neutrophils % (auto) 89.1 % (37.0-80.0); White Blood Cell 18.3 10^3/uL (4.4-10.8)
[2023-02-09] MEDS: SODIUM CHLOR 0.9% PF (SALINE LOCK) 10ML VIAL/SYR IV SCH ×5 (06:26→20:13)
[2023-02-09] MEDS: hydrALAZINE HCL 20 MG/ML VL IV PRN (07:00)
[2023-02-09] MEDS ORDERED: POTASSIUM CHL 20MEQ/100ML 100 ML IV ONE (09:00)
[2023-02-09] MEDS ORDERED: LISINOPRIL 10 MG TAB PO SCH (10:00)
[2023-02-09] MEDS: PANTOPRAZOLE 40 MG/10 ML VIAL INJ IV SCH ×2 (10:10→20:13)
[2023-02-09] MEDS: POTASSIUM EFFERVESENT TAB 25 MEQ PO SCH (10:11)
[2023-02-09] MEDS: methylPREDNISolone SOD SUCC 40 MG/ML VL IV SCH ×2 (10:11→20:13)
[2023-02-09] MEDS: LACTULOSE 20Gm/30ML SOLN PO SCH ×2 (10:11→20:13)
[2023-02-09] MEDS: BUMETANIDE 2.5mg/10ml (0.25 mg/ml) INJ IV SCH (10:11)
[2023-02-09] MEDS: amLODIPine BESYLATE 5 MG TAB PO SCH (10:12)
[2023-02-09] MEDS: METOPROLOL TARTRATE 50 MG TAB PO SCH ×2 (10:12→20:15)
[2023-02-09] MEDS: ARTIFICIAL TEARS 15ml EACHEYE PRN (10:23)
[2023-02-09 10:35] LABS: INR 1.28 (0.9-1.15); Partial Thromboplastin Time 57.2 SEC (24.5-34.5); Prothrombin Time 13.2 sec (9.3-11.8)
[2023-02-09] MEDS: HYDROmorphone HCL 2 MG/ML VL/or syr IV PRN ×3 (10:53→23:25)
[2023-02-09] MEDS: ACETAMINOPHEN 325 MG TAB PO PRN ×2 (11:57→22:02)
[2023-02-09] MEDS: MICAFUNGIN SODIUM 100 MG in SODIUM CHL 0.9% 100 ML IV SCH (14:57)
[2023-02-09] MEDS: ONDANSETRON HCL 4 MG/2 ML VIAL IV PRN (15:30)
[2023-02-09 15:53] LABS: INR 1.3 (0.9-1.15); Prothrombin Time 13.4 sec (9.3-11.8)
[2023-02-09] MEDS ORDERED: LISINOPRIL 10 MG TAB PO ONE (16:00)
[2023-02-09 16:39] LABS: INR 1.26 (0.9-1.15); Partial Thromboplastin Time 54.9 SEC (24.5-34.5)
[2023-02-09] MEDS: MIDAZOLAM DRIP 50 mg/50mL 50 ML IV SCH (20:15)
[2023-02-10] VITALS (56 sets, daily range): BP systolic 138–194; BP diastolic 67–101; PULSE 90–116; RESP 13–32; TEMP 97.3–100.6; O2SAT 93–100
[2023-02-10] MEDS: hydrALAZINE HCL 20 MG/ML VL IV PRN ×2 (00:06→11:35)
[2023-02-10] MEDS: CIPROFLOXACIN 0.3%OPTH(EYE) SOL 5ML LEFTEYE SCH ×6 (01:57→21:12)
[2023-02-10] MEDS: HEPARIN DRIP/D5W 100UNITS/ML 250 ML IV SCH (02:30)
[2023-02-10] MEDS: MEROPENEM 1GM IVPB 100 ML IV SCH ×3 (03:42→19:57)
[2023-02-10 04:34] LABS: Eosinophils # (auto) 0 10 ^3/uL (0-0.8); Hemoglobin 10.5 g/dL (12.2-16.2); Lymphocytes # (auto) 1.5 10 ^3/uL (0.4-5.4); Neutrophils # (auto) 14.1 10 ^3/uL (1.6-8.6)
[2023-02-10 04:37] LABS: Basophils # (auto) 0 10 ^3/uL (0-0.2); Basophils % (auto) 0.1 % (0.0-2.0); Hematocrit 33.3 % (36.0-46.0); Lymphocytes % (auto) 8.4 % (10.0-50.0); Mean Corpuscular Hemoglobin 27.5 pg (28.0-32.0); Mean Corpuscular Hgb Conc. 31.6 g/dL (32.0-36.0); Monocytes # (auto) 1.7 10 ^3/uL (0-1.3); Monocytes % (auto) 9.7 % (0.0-12.0); Neutrophils % (auto) 81.8 % (37.0-80.0); Red Blood Cells 3.83 10^6/uL (4.0-5.20); Red Cell Distribution Width 16.2 % (11.8-14.3); White Blood Cell 17.3 10^3/uL (4.4-10.8)
[2023-02-10 05:17] LABS: INR 1.26 (0.9-1.15); Partial Thromboplastin Time 52.4 SEC (24.5-34.5)
[2023-02-10 05:22] LABS: Alanine Aminotransferase 96 U/L (7-40); Albumin 3.9 g/dL (3.2-4.8); Alkaline Phosphatase 99 U/L (46-116); Anion Gap 10 (5-15); Aspartate Aminotransferase 51 U/L (13-40); BUN/Creatinine Ratio 27.3 (10.0-20.0); Bilirubin, Total 0.6 mg/dL (0.2-1.0); Blood Urea Nitrogen 18 mg/dL (9-23); Calcium 8.7 mg/dL (8.7-10.4); Carbon Dioxide 26 mmol/L (20-30); Chloride 106 mmol/L (98-107); Glucose 124 mg/dL (74-106); Potassium 3.1 mmol/L (3.5-5.1); Sodium 142 mmol/L (136-145); Total Protein 6.6 g/dL (5.7-8.2)
[2023-02-10] MEDS: IPRATROPIUM BROM 0.5 MG/2.5ML INH SOL NEB PRN ×2 (05:45→11:25)
[2023-02-10] MEDS: ALBUTEROL MEDNEB 2.5 mg/3ml NEB NEB SCH ×3 (05:45→19:13)
[2023-02-10] MEDS: ACETYLCYSTEINE 20%(200MG/ML) SOL 4ML NEB SCH ×3 (05:45→19:13)
[2023-02-10] MEDS: ACETAMINOPHEN 325 MG TAB PO PRN (06:17)
[2023-02-10] MEDS: VANCOMYCIN 1GM/250ML 250 ML IV SCH ×2 (06:17→21:10)
[2023-02-10] MEDS: LABETALOL HCL 5 MG/ML 4ML SYRINGE IV PRN ×2 (06:17→15:51)
[2023-02-10] MEDS: SODIUM CHLOR 0.9% PF (SALINE LOCK) 10ML VIAL/SYR IV SCH ×5 (06:18→21:11)
[2023-02-10 06:19] LABS: Triglycerides 206 mg/dL (< 150)
[2023-02-10 06:20] LABS: LDL Cholesterol 362 mg/dL (< 100)
[2023-02-10 06:21] LABS: Cholesterol 423 mg/dL (< 200); HDL Cholesterol 65 mg/dL (40-59)
[2023-02-10] MEDS: MICAFUNGIN SODIUM 100 MG in SODIUM CHL 0.9% 100 ML IV SCH (08:18)
[2023-02-10] MEDS: methylPREDNISolone SOD SUCC 40 MG/ML VL IV SCH ×2 (08:19→21:10)
[2023-02-10] MEDS: LACTULOSE 20Gm/30ML SOLN PO SCH ×2 (08:19→21:10)
[2023-02-10] MEDS: PANTOPRAZOLE 40 MG/10 ML VIAL INJ IV SCH ×2 (08:19→21:10)
[2023-02-10] MEDS: POTASSIUM EFFERVESENT TAB 25 MEQ PO SCH (08:19)
[2023-02-10] MEDS: amLODIPine BESYLATE 5 MG TAB PO SCH (08:20)
[2023-02-10] MEDS: HYDROmorphone HCL 2 MG/ML VL/or syr IV PRN (09:06)
[2023-02-10] MEDS: POTASSIUM CHL 20MEQ/100ML 100 ML IV SCH ×2 (09:07→11:29)
[2023-02-10] MEDS ORDERED: CARVEDILOL 12.5 MG TAB PO SCH (10:00)
[2023-02-10] MEDS ORDERED: LISINOPRIL 10 MG TAB PO SCH ×2 (10:00)
[2023-02-10] MEDS ORDERED: LISINOPRIL 20 MG TAB PO ONE (11:00)
[2023-02-10] MEDS: ONDANSETRON HCL 4 MG/2 ML VIAL IV PRN ×2 (11:19→18:50)
[2023-02-10] MEDS: HYDROcodone-ACET 10/325MG TAB PO PRN ×3 (11:20→21:11)
[2023-02-10] MEDS: BUMETANIDE 2.5mg/10ml (0.25 mg/ml) INJ IV SCH (11:27)
[2023-02-10 12:31] LABS: INR 1.22 (0.9-1.15); Partial Thromboplastin Time 56.4 SEC (24.5-34.5); Prothrombin Time 12.6 sec (9.3-11.8)
[2023-02-10 18:35] LABS: INR 1.26 (0.9-1.15)
[2023-02-10] MEDS: Jevity 1.2 Cal/Fiber 1 Liter GT SCH (20:06)
[2023-02-10] MEDS: MIDAZOLAM DRIP 50 mg/50mL 50 ML IV SCH (20:30)
[2023-02-10] MEDS: CARVEDILOL 12.5 MG TAB PO SCH (21:11)
[2023-02-11] VITALS (55 sets, daily range): BP systolic 141–193; BP diastolic 77–97; PULSE 83–106; RESP 14–34; TEMP 98.2–100.2; O2SAT 94–100
[2023-02-11] MEDS: ALBUTEROL MEDNEB 2.5 mg/3ml NEB NEB SCH ×5 (00:51→23:53)
[2023-02-11] MEDS: ACETYLCYSTEINE 20%(200MG/ML) SOL 4ML NEB SCH ×5 (00:51→23:53)
[2023-02-11] MEDS: HYDROcodone-ACET 10/325MG TAB PO PRN ×2 (01:17→08:19)
[2023-02-11] MEDS: hydrALAZINE HCL 20 MG/ML VL IV PRN ×2 (01:18→16:41)
[2023-02-11] MEDS: CIPROFLOXACIN 0.3%OPTH(EYE) SOL 5ML LEFTEYE SCH ×6 (01:18→21:52)
[2023-02-11] MEDS: HEPARIN DRIP/D5W 100UNITS/ML 250 ML IV SCH (01:41)
[2023-02-11] MEDS: LABETALOL HCL 5 MG/ML 4ML SYRINGE IV PRN ×2 (03:45→14:15)
[2023-02-11] MEDS: MEROPENEM 1GM IVPB 100 ML IV SCH ×2 (03:45→11:18)
[2023-02-11 04:51] LABS: Alanine Aminotransferase 59 U/L (7-40); Albumin 3.9 g/dL (3.2-4.8); Alkaline Phosphatase 92 U/L (46-116); Anion Gap 8 (5-15); Aspartate Aminotransferase 24 U/L (13-40); BUN/Creatinine Ratio 23.9 (10.0-20.0); Blood Urea Nitrogen 16 mg/dL (9-23); Calcium 8.7 mg/dL (8.7-10.4); Carbon Dioxide 25 mmol/L (20-30); Chloride 105 mmol/L (98-107); Glucose 123 mg/dL (74-106); Potassium 3.3 mmol/L (3.5-5.1); Sodium 138 mmol/L (136-145)
[2023-02-11 04:52] LABS: Bilirubin, Total 0.9 mg/dL (0.2-1.0); Total Protein 6.5 g/dL (5.7-8.2)
[2023-02-11 04:57] LABS: Basophils # (auto) 0.1 10 ^3/uL (0-0.2); Eosinophils # (auto) 0 10 ^3/uL (0-0.8); Eosinophils % (auto) 0.2 % (0.0-7.0); Hemoglobin 10.6 g/dL (12.2-16.2); Neutrophils # (auto) 15.6 10 ^3/uL (1.6-8.6)
[2023-02-11 04:59] LABS: Basophils % (auto) 0.4 % (0.0-2.0); Hematocrit 33.6 % (36.0-46.0); Lymphocytes # (auto) 1.5 10 ^3/uL (0.4-5.4); Lymphocytes % (auto) 8.3 % (10.0-50.0); Mean Corpuscular Hemoglobin 27.5 pg (28.0-32.0); Mean Corpuscular Hgb Conc. 31.5 g/dL (32.0-36.0); Mean Corpuscular Volume 87.1 fL (80.0-100.0); Monocytes # (auto) 1.1 10 ^3/uL (0-1.3); Neutrophils % (auto) 85.1 % (37.0-80.0); Red Blood Cells 3.86 10^6/uL (4.0-5.20); Red Cell Distribution Width 16.6 % (11.8-14.3); White Blood Cell 18.3 10^3/uL (4.4-10.8)
[2023-02-11 05:09] LABS: INR 1.26 (0.9-1.15)
[2023-02-11] MEDS: SODIUM CHLOR 0.9% PF (SALINE LOCK) 10ML VIAL/SYR IV SCH ×5 (05:51→21:51)
[2023-02-11] MEDS: HYDROmorphone HCL 2 MG/ML VL/or syr IV PRN ×2 (06:15→13:39)
[2023-02-11] MEDS: IPRATROPIUM BROM 0.5 MG/2.5ML INH SOL NEB PRN (07:05)
[2023-02-11] MEDS ORDERED: POTASSIUM CHLORIDE 40 MEQ, LIDOCAINE 1% (LOCAL ANESTH.) 4 ML in SODIUM CHL 0.9% 250 ML IV ONE (07:45)
[2023-02-11] MEDS: POTASSIUM EFFERVESENT TAB 25 MEQ PO SCH (09:53)
[2023-02-11] MEDS: amLODIPine BESYLATE 5 MG TAB PO SCH (09:53)
[2023-02-11] MEDS: CARVEDILOL 12.5 MG TAB PO SCH ×2 (09:54→21:51)
[2023-02-11] MEDS: methylPREDNISolone SOD SUCC 40 MG/ML VL IV SCH (09:56)
[2023-02-11] MEDS: LACTULOSE 20Gm/30ML SOLN PO SCH ×2 (09:56→21:50)
[2023-02-11] MEDS: SPIRONOLACTONE 25 MG TAB PO SCH (09:56)
[2023-02-11] MEDS: BUMETANIDE 2.5mg/10ml (0.25 mg/ml) INJ IV SCH (09:57)
[2023-02-11] MEDS: PANTOPRAZOLE 40 MG/10 ML VIAL INJ IV SCH ×2 (09:58→21:51)
[2023-02-11] MEDS: MICAFUNGIN SODIUM 100 MG in SODIUM CHL 0.9% 100 ML IV SCH (09:58)
[2023-02-11] MEDS: LISINOPRIL 20 MG TAB PO SCH (10:04)
[2023-02-11] MEDS: ONDANSETRON HCL 4 MG/2 ML VIAL IV PRN (10:11)
[2023-02-11] MEDS: POTASSIUM CHL 20MEQ/100ML 100 ML IV SCH ×2 (11:46→13:41)
[2023-02-11 12:33] LABS: INR 1.21 (0.9-1.15); Prothrombin Time 12.5 sec (9.3-11.8)
[2023-02-11 12:37] LABS: Partial Thromboplastin Time 87.2 SEC (24.5-34.5)
[2023-02-11] MEDS ORDERED: METOCLOPRAMIDE HCL 5MG/ml INJ 2ml VIAL IV PRN (14:30)
[2023-02-11] MEDS ORDERED: POTASSIUM CHLORIDE 20 MEQ, LIDOCAINE 1% (LOCAL ANESTH.) 2 ML in SODIUM CHL 0.9% 100 ML IV ONE (14:30)
[2023-02-11] MEDS: ALBUTEROL MEDNEB 2.5 mg/3ml NEB NEB PRN (14:50)
[2023-02-11] MEDS: VANCOMYCIN 1GM/250ML 250 ML IV SCH (18:13)
[2023-02-11 19:52] LABS: INR 1.31 (0.9-1.15); Partial Thromboplastin Time 63.8 SEC (24.5-34.5); Prothrombin Time 13.5 sec (9.3-11.8)
[2023-02-12] VITALS (83 sets, daily range): BP systolic 111–172; BP diastolic 59–95; PULSE 70–106; RESP 16–30; TEMP 98.4–100; O2SAT 93–100
[2023-02-12 01:31] LABS: INR 1.21 (0.9-1.15); Partial Thromboplastin Time 67.2 SEC (24.5-34.5); Prothrombin Time 12.5 sec (9.3-11.8)
[2023-02-12] MEDS: CIPROFLOXACIN 0.3%OPTH(EYE) SOL 5ML LEFTEYE SCH ×6 (01:51→21:36)
[2023-02-12 04:38] LABS: Eosinophils # (auto) 0.2 10 ^3/uL (0-0.8); Eosinophils % (auto) 1.1 % (0.0-7.0); Monocytes # (auto) 1.9 10 ^3/uL (0-1.3); Monocytes % (auto) 11.1 % (0.0-12.0); Neutrophils # (auto) 13.3 10 ^3/uL (1.6-8.6); White Blood Cell 17.2 10^3/uL (4.4-10.8)
[2023-02-12 04:41] LABS: Basophils # (auto) 0.1 10 ^3/uL (0-0.2); Basophils % (auto) 0.3 % (0.0-2.0); Hematocrit 32.6 % (36.0-46.0); Hemoglobin 10.4 g/dL (12.2-16.2); Lymphocytes # (auto) 1.7 10 ^3/uL (0.4-5.4); Lymphocytes % (auto) 9.9 % (10.0-50.0); Mean Corpuscular Hemoglobin 27.6 pg (28.0-32.0); Mean Corpuscular Hgb Conc. 31.8 g/dL (32.0-36.0); Mean Corpuscular Volume 86.8 fL (80.0-100.0); Neutrophils % (auto) 77.6 % (37.0-80.0); Red Blood Cells 3.75 10^6/uL (4.0-5.20); Red Cell Distribution Width 16.5 % (11.8-14.3)
[2023-02-12 04:59] LABS: Alanine Aminotransferase 35 U/L (7-40); Albumin 3.8 g/dL (3.2-4.8); Alkaline Phosphatase 83 U/L (46-116); Anion Gap 10 (5-15); Aspartate Aminotransferase 18 U/L (13-40); Blood Urea Nitrogen 18 mg/dL (9-23); Calcium 8.8 mg/dL (8.7-10.4); Carbon Dioxide 25 mmol/L (20-30); Chloride 105 mmol/L (98-107); Glucose 111 mg/dL (74-106); Sodium 140 mmol/L (136-145)
[2023-02-12 05:00] LABS: Bilirubin, Total 0.6 mg/dL (0.2-1.0); Total Protein 6.3 g/dL (5.7-8.2)
[2023-02-12] MEDS: SODIUM CHLOR 0.9% PF (SALINE LOCK) 10ML VIAL/SYR IV SCH ×5 (05:43→21:36)
[2023-02-12] MEDS: HEPARIN DRIP/D5W 100UNITS/ML 250 ML IV SCH ×2 (05:46→15:16)
[2023-02-12] MEDS: methylPREDNISolone SOD SUCC 40 MG/ML VL IV SCH (06:28)
[2023-02-12] MEDS: hydrALAZINE HCL 20 MG/ML VL IV PRN (06:29)
[2023-02-12] MEDS: ACETYLCYSTEINE 20%(200MG/ML) SOL 4ML NEB SCH ×3 (06:38→18:48)
[2023-02-12] MEDS: ALBUTEROL MEDNEB 2.5 mg/3ml NEB NEB SCH ×3 (06:38→18:48)
[2023-02-12] MEDS: POTASSIUM EFFERVESENT TAB 25 MEQ PO SCH (09:12)
[2023-02-12] MEDS: PANTOPRAZOLE 40 MG/10 ML VIAL INJ IV SCH ×2 (09:12→21:35)
[2023-02-12] MEDS: LISINOPRIL 20 MG TAB PO SCH (09:13)
[2023-02-12] MEDS: CARVEDILOL 12.5 MG TAB PO SCH ×2 (09:14→21:37)
[2023-02-12] MEDS: amLODIPine BESYLATE 5 MG TAB PO SCH (09:14)
[2023-02-12] MEDS: SPIRONOLACTONE 25 MG TAB PO SCH (09:14)
[2023-02-12] MEDS: cefTRIAXone 1GM/50ML D5W 50 ML IV SCH (09:15)
[2023-02-12] MEDS ORDERED: POTASSIUM CHL 20MEQ/100ML 100 ML IV SCH (09:15)
[2023-02-12] MEDS: VANCOMYCIN 1GM/250ML 250 ML IV SCH (09:15)
[2023-02-12] MEDS: LACTULOSE 20Gm/30ML SOLN PO SCH ×2 (09:16→21:36)
[2023-02-12 10:04] LABS: INR 1.17 (0.9-1.15); Partial Thromboplastin Time 56.9 SEC (24.5-34.5); Prothrombin Time 12.2 sec (9.3-11.8)
[2023-02-12] MEDS ORDERED: POTASSIUM CHL 10MEQ/50ML 50 ML IV SCH (13:00)
[2023-02-12] MEDS: MICAFUNGIN SODIUM 100 MG in SODIUM CHL 0.9% 100 ML IV SCH (14:10)
[2023-02-12] MEDS: METOCLOPRAMIDE HCL 5MG/ml INJ 2ml VIAL IV SCH ×2 (14:11→21:36)
[2023-02-12] MEDS: HYDROmorphone HCL 2 MG/ML VL/or syr IV PRN (17:43)
[2023-02-12] MEDS: ATORVASTATIN 20 MG TAB PO SCH (21:37)
[2023-02-13] VITALS (78 sets, daily range): BP systolic 118–169; BP diastolic 62–92; PULSE 71–110; RESP 17–30; TEMP 97.7–100; O2SAT 94–100
[2023-02-13] MEDS: ALBUTEROL MEDNEB 2.5 mg/3ml NEB NEB SCH ×4 (00:24→18:37)
[2023-02-13] MEDS: ACETYLCYSTEINE 20%(200MG/ML) SOL 4ML NEB SCH ×4 (00:24→18:37)
[2023-02-13] MEDS: CIPROFLOXACIN 0.3%OPTH(EYE) SOL 5ML LEFTEYE SCH ×6 (02:03→22:04)
[2023-02-13] MEDS: VANCOMYCIN 1GM/250ML 250 ML IV SCH ×2 (02:04→17:55)
[2023-02-13] MEDS: HEPARIN DRIP/D5W 100UNITS/ML 250 ML IV SCH (03:45)
[2023-02-13 05:54] LABS: INR 1.18 (0.9-1.15); Partial Thromboplastin Time 65.5 SEC (24.5-34.5); Prothrombin Time 12.3 sec (9.3-11.8)
[2023-02-13] MEDS: METOCLOPRAMIDE HCL 5MG/ml INJ 2ml VIAL IV SCH ×3 (06:17→22:02)
[2023-02-13] MEDS: SODIUM CHLOR 0.9% PF (SALINE LOCK) 10ML VIAL/SYR IV SCH ×5 (06:17→22:04)
[2023-02-13 06:58] LABS: Basophils # (auto) 0.1 10 ^3/uL (0-0.2); Mean Corpuscular Hemoglobin 27.5 pg (28.0-32.0); Monocytes # (auto) 2.2 10 ^3/uL (0-1.3); Monocytes % (auto) 10.2 % (0.0-12.0); White Blood Cell 21.1 10^3/uL (4.4-10.8)
[2023-02-13 07:00] LABS: Basophils % (auto) 0.5 % (0.0-2.0); Eosinophils # (auto) 0.4 10 ^3/uL (0-0.8); Hematocrit 33.6 % (36.0-46.0); Hemoglobin 10.5 g/dL (12.2-16.2); Lymphocytes # (auto) 2.5 10 ^3/uL (0.4-5.4); Lymphocytes % (auto) 11.8 % (10.0-50.0); Mean Corpuscular Hgb Conc. 31.2 g/dL (32.0-36.0); Mean Corpuscular Volume 88.2 fL (80.0-100.0); Neutrophils % (auto) 75.5 % (37.0-80.0); Red Blood Cells 3.81 10^6/uL (4.0-5.20); Red Cell Distribution Width 16.9 % (11.8-14.3)
[2023-02-13] MEDS: methylPREDNISolone SOD SUCC 40 MG/ML VL IV SCH (07:05)
[2023-02-13] MEDS: POTASSIUM EFFERVESENT TAB 25 MEQ PO SCH (07:54)
[2023-02-13] MEDS: MICAFUNGIN SODIUM 100 MG in SODIUM CHL 0.9% 100 ML IV SCH (07:55)
[2023-02-13] MEDS: PANTOPRAZOLE 40 MG/10 ML VIAL INJ IV SCH ×2 (07:55→22:01)
[2023-02-13] MEDS: LACTULOSE 20Gm/30ML SOLN PO SCH ×2 (07:55→22:02)
[2023-02-13] MEDS: cefTRIAXone 1GM/50ML D5W 50 ML IV SCH (07:55)
[2023-02-13] MEDS: LISINOPRIL 20 MG TAB PO SCH (07:56)
[2023-02-13] MEDS: amLODIPine BESYLATE 5 MG TAB PO SCH (07:56)
[2023-02-13] MEDS: CARVEDILOL 12.5 MG TAB PO SCH ×2 (07:57→22:03)
[2023-02-13] MEDS: IPRATROPIUM BROM 0.5 MG/2.5ML INH SOL NEB PRN (08:07)
[2023-02-13 08:25] LABS: Alanine Aminotransferase 32 U/L (7-40); Albumin 3.8 g/dL (3.2-4.8); Alkaline Phosphatase 70 U/L (46-116); Anion Gap 10 (5-15); Aspartate Aminotransferase 18 U/L (13-40); BUN/Creatinine Ratio 32.7 (10.0-20.0); Bilirubin, Total 0.5 mg/dL (0.2-1.0); Blood Urea Nitrogen 16 mg/dL (9-23); Carbon Dioxide 23 mmol/L (20-30); Chloride 104 mmol/L (98-107); Glucose 102 mg/dL (74-106); Potassium 3.9 mmol/L (3.5-5.1); Sodium 137 mmol/L (136-145); Total Protein 6.2 g/dL (5.7-8.2)
[2023-02-13] MEDS: VALSARTAN 80 MG TAB PO SCH (10:00)
[2023-02-13] MEDS: SPIRONOLACTONE 25 MG TAB PO SCH (10:00)
[2023-02-13] MEDS: MEROPENEM 1GM IVPB 100 ML IV SCH ×2 (12:59→22:03)
[2023-02-13] MEDS: hydrALAZINE HCL 20 MG/ML VL IV PRN (16:45)
[2023-02-13] MEDS: HYDROmorphone HCL 2 MG/ML VL/or syr IV PRN (19:06)
[2023-02-13] MEDS: HYDROcodone-ACET 10/325MG TAB PO PRN (20:43)
[2023-02-13] MEDS: ATORVASTATIN 20 MG TAB PO SCH (22:03)
[2023-02-14] VITALS (30 sets, daily range): BP systolic 126–157; BP diastolic 64–93; PULSE 74–99; RESP 13–22; TEMP 97.4–99; O2SAT 2–100
[2023-02-14] MEDS: ALBUTEROL MEDNEB 2.5 mg/3ml NEB NEB SCH ×4 (00:02→19:08)
[2023-02-14] MEDS: ACETYLCYSTEINE 20%(200MG/ML) SOL 4ML NEB SCH ×4 (00:02→19:09)
[2023-02-14] MEDS: CIPROFLOXACIN 0.3%OPTH(EYE) SOL 5ML LEFTEYE SCH ×3 (02:23→10:18)
[2023-02-14] MEDS: HYDROmorphone HCL 2 MG/ML VL/or syr IV PRN ×3 (03:56→18:01)
[2023-02-14] MEDS: HEPARIN DRIP/D5W 100UNITS/ML 250 ML IV SCH (03:57)
[2023-02-14 04:59] LABS: Basophils # (auto) 0.1 10 ^3/uL (0-0.2); Eosinophils # (auto) 0.3 10 ^3/uL (0-0.8); Hemoglobin 10.2 g/dL (12.2-16.2); Mean Corpuscular Volume 86.4 fL (80.0-100.0); Monocytes # (auto) 2.1 10 ^3/uL (0-1.3)
[2023-02-14 05:01] LABS: Basophils % (auto) 0.5 % (0.0-2.0); Eosinophils % (auto) 1.2 % (0.0-7.0); Hematocrit 31.8 % (36.0-46.0); Lymphocytes # (auto) 2.6 10 ^3/uL (0.4-5.4); Lymphocytes % (auto) 12.5 % (10.0-50.0); Mean Corpuscular Hemoglobin 27.7 pg (28.0-32.0); Mean Corpuscular Hgb Conc. 32.1 g/dL (32.0-36.0); Monocytes % (auto) 10.3 % (0.0-12.0); Neutrophils # (auto) 15.7 10 ^3/uL (1.6-8.6); Neutrophils % (auto) 75.5 % (37.0-80.0); Red Blood Cells 3.68 10^6/uL (4.0-5.20); Red Cell Distribution Width 16.8 % (11.8-14.3); White Blood Cell 20.8 10^3/uL (4.4-10.8)
[2023-02-14 05:13] LABS: Alanine Aminotransferase 23 U/L (7-40); Albumin 3.8 g/dL (3.2-4.8); Alkaline Phosphatase 75 U/L (46-116); Anion Gap 10 (5-15); Aspartate Aminotransferase 15 U/L (13-40); BUN/Creatinine Ratio 32.7 (10.0-20.0); Bilirubin, Total 0.5 mg/dL (0.2-1.0); Blood Urea Nitrogen 18 mg/dL (9-23); Calcium 8.8 mg/dL (8.7-10.4); Carbon Dioxide 23 mmol/L (20-30); Chloride 105 mmol/L (98-107); Glucose 108 mg/dL (74-106); Potassium 3.5 mmol/L (3.5-5.1); Sodium 138 mmol/L (136-145); Total Protein 5.9 g/dL (5.7-8.2)
[2023-02-14 05:16] LABS: INR 1.19 (0.9-1.15); Prothrombin Time 12.4 sec (9.3-11.8)
[2023-02-14 05:29] LABS: Partial Thromboplastin Time 92.5 SEC (24.5-34.5)
[2023-02-14 05:39] LABS: CRP High Sensitivity 0.26 mg/dL (<1.0)
[2023-02-14] MEDS: MEROPENEM 1GM IVPB 100 ML IV SCH ×3 (06:24→22:00)
[2023-02-14] MEDS: METOCLOPRAMIDE HCL 5MG/ml INJ 2ml VIAL IV SCH ×2 (06:24→14:00)
[2023-02-14] MEDS: methylPREDNISolone SOD SUCC 40 MG/ML VL IV SCH (06:24)
[2023-02-14] MEDS: SODIUM CHLOR 0.9% PF (SALINE LOCK) 10ML VIAL/SYR IV SCH ×4 (06:24→22:00)
[2023-02-14] MEDS ORDERED: POTASSIUM EFFERVESENT TAB 25 MEQ GT ONE (09:30)
[2023-02-14] MEDS: LACTULOSE 20Gm/30ML SOLN PO SCH ×2 (09:58→22:00)
[2023-02-14] MEDS: POTASSIUM EFFERVESENT TAB 25 MEQ PO SCH (09:58)
[2023-02-14] MEDS: PANTOPRAZOLE 40 MG/10 ML VIAL INJ IV SCH (09:58)
[2023-02-14] MEDS: MICAFUNGIN SODIUM 100 MG in SODIUM CHL 0.9% 100 ML IV SCH (10:00)
[2023-02-14] MEDS: CARVEDILOL 12.5 MG TAB PO SCH (10:19)
[2023-02-14] MEDS: amLODIPine BESYLATE 5 MG TAB PO SCH (10:19)
[2023-02-14] MEDS: SPIRONOLACTONE 25 MG TAB PO SCH (10:20)
[2023-02-14] MEDS: VANCOMYCIN 1GM/250ML 250 ML IV SCH (10:20)
[2023-02-14] MEDS: VALSARTAN 80 MG TAB PO SCH (14:39)
[2023-02-15] VITALS (10 sets, daily range): BP systolic 116–150; BP diastolic 65–90; PULSE 84–93; RESP 15–18; TEMP 97.7–98.4; O2SAT 94–99
[2023-02-15] MEDS: METOCLOPRAMIDE HCL 5MG/ml INJ 2ml VIAL IV SCH ×3 (00:23→15:21)
[2023-02-15] MEDS: ACETYLCYSTEINE 20%(200MG/ML) SOL 4ML NEB SCH ×3 (00:23→12:00)
[2023-02-15] MEDS: ALBUTEROL MEDNEB 2.5 mg/3ml NEB NEB SCH ×3 (00:23→12:00)
[2023-02-15] MEDS: PANTOPRAZOLE 40 MG/10 ML VIAL INJ IV SCH ×2 (00:23→09:06)
[2023-02-15] MEDS: ATORVASTATIN 20 MG TAB PO SCH (00:24)
[2023-02-15] MEDS: SODIUM CHLOR 0.9% PF (SALINE LOCK) 10ML VIAL/SYR IV SCH ×4 (00:24→15:22)
[2023-02-15] MEDS: CARVEDILOL 12.5 MG TAB PO SCH ×2 (00:25→09:15)
[2023-02-15] MEDS: APIXABAN 5 MG TAB PO SCH ×2 (00:25→09:06)
[2023-02-15] MEDS: HYDROmorphone HCL 2 MG/ML VL/or syr IV PRN ×2 (00:25→04:54)
[2023-02-15] MEDS: VANCOMYCIN 1GM/250ML 250 ML IV SCH ×2 (02:48→17:37)
[2023-02-15 05:16] LABS: Alanine Aminotransferase 19 U/L (7-40); Alkaline Phosphatase 74 U/L (46-116); Anion Gap 5 (5-15); Aspartate Aminotransferase 14 U/L (13-40); BUN/Creatinine Ratio 23.2 (10.0-20.0); Blood Urea Nitrogen 13 mg/dL (9-23); Calcium 8.9 mg/dL (8.7-10.4); Carbon Dioxide 24 mmol/L (20-30); Chloride 106 mmol/L (98-107); Glucose 126 mg/dL (74-106); Magnesium 1.9 mg/dL (1.6-2.6); Potassium 3.4 mmol/L (3.5-5.1); Sodium 135 mmol/L (136-145)
[2023-02-15 05:17] LABS: Bilirubin, Total 0.6 mg/dL (0.2-1.0); Total Protein 6.3 g/dL (5.7-8.2)
[2023-02-15 05:33] LABS: Basophils # (auto) 0.3 10 ^3/uL (0-0.2); Basophils % (auto) 1.3 % (0.0-2.0); Eosinophils # (auto) 0.2 10 ^3/uL (0-0.8); Monocytes # (auto) 2.1 10 ^3/uL (0-1.3)
[2023-02-15 05:35] LABS: Eosinophils % (auto) 1.1 % (0.0-7.0); Hematocrit 31.5 % (36.0-46.0); Lymphocytes # (auto) 1.9 10 ^3/uL (0.4-5.4); Mean Corpuscular Hemoglobin 27.9 pg (28.0-32.0); Mean Corpuscular Hgb Conc. 31.9 g/dL (32.0-36.0); Mean Corpuscular Volume 87.5 fL (80.0-100.0); Monocytes % (auto) 8.9 % (0.0-12.0); Neutrophils # (auto) 19.1 10 ^3/uL (1.6-8.6); Neutrophils % (auto) 80.7 % (37.0-80.0); Nucleated Red Blood Cells % 0.1 %; Red Cell Distribution Width 16.6 % (11.8-14.3); White Blood Cell 23.6 10^3/uL (4.4-10.8)
[2023-02-15 06:26] LABS: CRP High Sensitivity 0.27 mg/dL (<1.0)
[2023-02-15] MEDS: MEROPENEM 1GM IVPB 100 ML IV SCH ×2 (06:59→14:00)
[2023-02-15] MEDS: IPRATROPIUM BROM 0.5 MG/2.5ML INH SOL NEB PRN (07:20)
[2023-02-15] MEDS: LACTULOSE 20Gm/30ML SOLN PO SCH (09:06)
[2023-02-15] MEDS: SPIRONOLACTONE 25 MG TAB PO SCH (09:09)
[2023-02-15] MEDS ORDERED: POTASSIUM EFFERVESENT TAB 25 MEQ GT ONE (09:15)
[2023-02-15] MEDS: VALSARTAN 80 MG TAB PO SCH (09:16)
[2023-02-15] MEDS: amLODIPine BESYLATE 5 MG TAB PO SCH (09:17)
[2023-02-15] MEDS: POTASSIUM EFFERVESENT TAB 25 MEQ PO SCH (10:00)
[2023-02-15] MEDS ORDERED: predniSONE 20 MG TAB PO SCH (10:00)
[2023-02-15] MEDS: MICAFUNGIN SODIUM 100 MG in SODIUM CHL 0.9% 100 ML IV SCH (10:00)
== END 2023-02-15 17:00 | DRG 870 ==
LOC: EDBD 19:24 → ER 19:24 → TELE 21:47 → ICU WEST 01-16 00:16 → DOU IN ICU 02-12 04:18 → TELE-WESTW 02-14 10:41
PROVIDERS: ADMIT Internal Medicine; ATTEND Emergency Medicine
PROC: 5A1955Z Respiratory Ventilation, Greater than 96 Consecutive Hours (ICD-10-PCS; principal; 2023-01-15)
PROC: 0BH17EZ Insertion of Endotracheal Airway into Trachea, Via Natural or Artificial Opening (ICD-10-PCS; 2023-01-15)
PROC: 30233N1 Transfusion of Nonautologous Red Blood Cells into Peripheral Vein, Percutaneous Approach (ICD-10-PCS; 2023-01-17)
PROC: 0B9B8ZZ Drainage of Left Lower Lobe Bronchus, Via Natural or Artificial Opening Endoscopic (ICD-10-PCS; 2023-01-18)
PROC: 0B988ZZ Drainage of Left Upper Lobe Bronchus, Via Natural or Artificial Opening Endoscopic (ICD-10-PCS; 2023-01-18)
PROC: 0DB98ZX Excision of Duodenum, Via Natural or Artificial Opening Endoscopic, Diagnostic (ICD-10-PCS; 2023-01-19)
PROC: 0DB78ZX Excision of Stomach, Pylorus, Via Natural or Artificial Opening Endoscopic, Diagnostic (ICD-10-PCS; 2023-01-19)
PROC: 02H633Z Insertion of Infusion Device into Right Atrium, Percutaneous Approach (ICD-10-PCS; 2023-01-26)
PROC: 0W993ZZ Drainage of Right Pleural Cavity, Percutaneous Approach (ICD-10-PCS; 2023-02-01)
PROC: 0W9B3ZZ Drainage of Left Pleural Cavity, Percutaneous Approach (ICD-10-PCS; 2023-02-03)
PROC: 5A09357 Assistance with Respiratory Ventilation, Less than 24 Consecutive Hours, Continuous Positive Airway Pressure (ICD-10-PCS; 2023-02-07)
DX: A41.9 Sepsis, unspecified organism (principal); G92.8 Other toxic encephalopathy; I63.9 Cerebral infarction, unspecified; J69.0 Pneumonitis due to inhalation of food and vomit; J96.01 Acute respiratory failure with hypoxia; K72.00 Acute and subacute hepatic failure without coma; R57.1 Hypovolemic shock; R65.21 Severe sepsis with septic shock; I46.9 Cardiac arrest, cause unspecified; I21.A1 Myocardial infarction type 2; K29.71 Gastritis, unspecified, with bleeding; K29.81 Duodenitis with bleeding; E87.20 Acidosis, unspecified; J90 Pleural effusion, not elsewhere classified; N17.9 Acute kidney failure, unspecified; E44.0 Moderate protein-calorie malnutrition; I82.623 Acute embolism and thrombosis of deep veins of upper extremity, bilateral; C34.90 Malignant neoplasm of unspecified part of unspecified bronchus or lung; T40.601A Poisoning by unspecified narcotics, accidental (unintentional), initial encounter; D64.9 Anemia, unspecified; M06.9 Rheumatoid arthritis, unspecified; D50.0 Iron deficiency anemia secondary to blood loss (chronic); K44.9 Diaphragmatic hernia without obstruction or gangrene; D75.839 Thrombocytosis, unspecified; K76.0 Fatty (change of) liver, not elsewhere classified; E83.51 Hypocalcemia; E87.6 Hypokalemia; R73.9 Hyperglycemia, unspecified; Z80.42 Family history of malignant neoplasm of prostate; Z68.26 Body mass index [BMI] 26.0-26.9, adult; Y92.89 Other specified places as the place of occurrence of the external cause; Z79.891 Long term (current) use of opiate analgesic
CPT/HCPCS: 31623; 36415; 36569; 36600; 43239; 70450; 71045; 71250; 72125; 74018; 74176; 76604; 76705; 76942; 80048; 80053; 80061; 80202; 80307; 80320; 80329; 81001; 82270; 82550; 82565; 82805; 82962; 83036; 83605; 83735; 83986; 84478; 84484; 85007; 85014; 85018; 85025; 85027; 85610; 85652; 85730; 86141; 86200; 86431; 86850; 86900; 86901; 86920; 87040; 87070; 87077; 87081; 87086; 87205; 89051; 92507; 92610; 93005; 93306; 93970; 93971; 94002; 94003; 94640; 96374; 96375; 97110; 97163; 97530; C9113; G0378; J0171; J0692; J0696; J1450; J2001; J2185; J2248; J2250; J2405; J2543; J2704; J3480; J3490; J7060